=== PATIENT | male | born 1955 | race Caucasian/White ===

== ENCOUNTER 2025-02-14 09:06 | Emergency (ER) | payer MEDICARE, OTHER, SELFPAY ==
--- NOTE | ~2025-02-14 | XR_ITS ---
EXAMINATION: XR foot LT min 3V DATE: 02/14/2025 09:50 INDICATION: Pain and swelling at the left first metatarsal TECHNIQUE: Dorsoplantar, two oblique and lateral views of the left foot were obtained. COMPARISON: None. FINDINGS: No fracture. Widening of the fifth proximal interphalangeal joint with chronic osteotomies at the bas e of the middle phalanx and head of the proximal phalanx. Suggestion of prior arthroplasty and subseq uent fusion of the second proximal interphalangeal joint. There is additional widening of the second metatarsophalangeal joint with flattening of the head of the second metatarsal without underlying sub chondral sclerosis or lucency at likely sequela of chronic osteonecrosis (Freiberg's infraction). Ali gnment at each of these joints remains near-anatomic. Small Achilles and plantar calcaneal spurs with suture anchor at the region of the calcaneal insertion of the distal Achilles tendon. Mild polyartic ular osteoarthritis at multiple joints throughout the left foot including the first metatarsophalange al joint. No erosions to suggest inflammatory arthritis. Mild soft tissue swelling about the head of the first metatarsal. IMPRESSION: 1. Scattered degenerative and postoperative changes in the foot as detailed above. No acute osseous a bnormality. Reviewed, dictated and finalized at location A. IMPRESSION: 1. Scattered degenerative and postoperative changes in the foot as detailed abo ve. No acute osseous abnormality.
[2025-02-14 09:16] VITALS: BP 86/54; PULSE 92; RESP 20; TEMP 36.4; O2SAT 100
--- NOTE | 2025-02-14 09:24 | ED.LOWEXIN ---
HPI - Extremity Injury (Lower) General Chief Complaint: Extremity Injury, Lower Stated Complaint: Left Great Toe Pain/Injury Time Seen by Provider: 02/14/25 09:24 Source: patient Mode of arrival: ambulatory Limitations: no limitations History of Present Illness HPI Narrative: 69 yo M presents with c/o pain to L 1st MCP for 1 day. Fell yesterday and hit foot. Did not have any pain at that time. Now has swelling, tenderness, redness. CMS intact. No history of gout. All systems reviewed and negative except as noted above. Related Data Home Medications ?Medication ?Instructions ?Recorded ?Confirmed ?Last Taken ?Type Xarelto 02/14/25 Unknown History aspirin 02/14/25 Unknown History finasteride 02/14/25 Unknown History flomax 02/14/25 Unknown History lisinopril 02/14/25 Unknown History loratidin 02/14/25 Unknown History metoprolol succinate 02/14/25 Unknown History rosuvastatin 02/14/25 Unknown History spironolactone 02/14/25 Unknown History venlafexine 02/14/25 Unknown History Allergies Allergy/AdvReac Type Severity Reaction Status Date / Time No Known Allergies Allergy Verified 02/14/25 09:37 Review of Systems Review of Systems: CONSTITUTIONAL: Denies fever, chills, or sweats. EYES: Denies visual changes, redness, or discharge. ENT: Denies rhinorrhea, congestion, sore throat, or otalgia. CARDIOVASCULAR: Denies chest pain, palpitations, or edema. RESPIRATORY: Denies cough or dyspnea. GASTROINTESTINAL: Denies abdominal pain, nausea, vomiting, or diarrhea. GENITOURINARY: Denies dysuria or hematuria. SKIN: Denies rash or itching. MUSCULOSKELETAL: Denies back pain, joint pain, or myalgia. Reports pain to Left Foot. NEUROLOGIC: Denies headache, numbness, or weakness. PSYCHIATRIC: Denies anxiety or depression. All other systems reviewed are negative, except as documented in HPI. PMFSH Comments At time of signature, agree with nursing past medical, surgical, social and family history. There is no relevant family history pertinent to the presenting complaint. Exam Narrative: GENERAL: This is a well-nourished, well-developed patient, in no apparent distress. HEAD: normocephalic, atraumatic. EYES: PERRL. Sclera clear/white. Vision is grossly intact. EARS: External ears normal NOSE: External nose normal NECK: Neck supple, non-tender without lymphadenopathy, masses or thyromegaly. CARDIOVASCULAR: Regular rate and rhythm without murmurs, gallops, or rubs. RESPIRATORY: Clear to auscultation. Breath sounds equal bilaterally. No wheezes, rales, or rhonchi. SKIN: warm, Dry, intact with no suspicious lesions or rash, good texture and turgor. NEURO: awake, alert, and oriented to person, place and time. There were no obvious focal neurologic abnormalities. EXTREMITIES: No joint tenderness, effusion. Erythema to the medial aspect left 1st MCP with tenderness on palpation. Mild swelling noted. No deformity. Course Course Level of Care: Express Care Visit Vital Signs Vital signs: Vital Signs Temperature 36.4 C 02/14/25 09:16 Pulse Rate 92 02/14/25 09:16 Respiratory Rate 20 02/14/25 09:16 Blood Pressure 86/54 L 02/14/25 09:16 Pulse Oximetry 100 02/14/25 09:16 Oxygen Delivery Room Air 02/14/25 09:16 Temperature 36.4 C 02/14/25 09:16 Pulse Rate 92 02/14/25 09:16 Respiratory Rate 20 02/14/25 09:16 Blood Pressure 86/54 L 02/14/25 09:16 Pulse Oximetry 100 02/14/25 09:16 Oxygen Delivery Room Air 02/14/25 09:16 Reviewed MDM - Extremity Injury (Lower) MDM Narrative Medical decision making narrative: will treat erythema with cephelexin. concern for cellulitis due to recent injury. xray neg for fracture. no hx of gout but will give dose of colchicine as precaution. CMS intact. Discharge Plan Discharge Clinical Impression: Cellulitis of foot, left Patient Disposition: Home Condition: Stable Instructions: Antibiotic Form, Cellulitis (ED) Additional Instructions: your x-ray was negative for fracture. Take medications as prescribed. Take Tylenol every 6-8 hours as needed for pain. Elevate when at rest. Follow-up with your primary care physician if not improving. Patient Language: Bulgarian Prescriptions: New cephalexin 500 mg capsule 500 mg PO Q8H 7 Days Qty: 21 0RF colchicine 0.6 mg capsule 0.6 mg PO DIRECTED Qty: 3 0RF Rx Instructions: Take 2 tablets and then 1 hour later take 1 tablet. No Action Xarelto aspirin finasteride lisinopril loratidin metoprolol succinate venlafexine rosuvastatin spironolactone flomax Follow-up/Referrals: [facility] [Primary Care Provider] - Stand Alone Forms: Work/School Release IP Time of Disposition: 10:17
--- OUTSIDE RECORDS SUMMARY | 2025-02-14 09:29 | XMS_ITS | Clinical Summary ---
Author Organization [facility] Address [address] [place] [address] Phone Care Team Providers Care Whizzer Hand Name Role Phone Bayron Hurt MD Primary Care Provider [phone] Allergies Active Allergy Reactions Criticality Noted Date Comments Atorvastatin Calcium Unknown 01/06/2020 Tall Ragweed Other (see Comments) 11/19/2023 Sinus problems Medications aspirin EC 81 MG Tablet Delayed Response Take 81 mg by mouth daily. Active carvedilol (COREG) 6.25 MG Tablet Take 6.25 mg by mouth 2 times daily. Active Loratadine 10 MG Capsule Take 1 Cap by mouth daily. Active pantoprazole (PROTONIX) 40 MG Tablet Delayed Response Take 40 mg by mouth every morning. Active rivaroxaban (XARELTO) 20 MG Tablet Take 20 mg by mouth daily (with dinner). Take with food. Active spironolactone (ALDACTONE) 25 MG Tablet Take 25 mg by mouth every morning. Active rosuvastatin (CRESTOR) 40 MG Tablet Take 20 mg by mouth nightly. Active FLUTICASONE PROPIONATE, NASAL, NA 1 [place] by Nasal route daily. Active ipratropium (ATROVENT) 0.03 % Solution 2 Sprays by Nasal route every 12 hours. Active tamsulosin (FLOMAX) 0.4 MG Capsule Take 0.4 mg by mouth daily. Active amiodarone (CORDARONE) 200 MG Tablet Take 1 Tab by mouth daily. 30 Tab 1 01/08/2020 Active venlafaxine (EFFEXOR XR) 75 MG CAPSULE SR 24 HR Take 225 mg by mouth daily. Active lisinopril (PRINIVIL, ZESTRIL) 5 MG Tablet Take 2.5 mg by mouth daily. Active sotalol (BETAPACE) 240 MG Tablet Take 120 mg by mouth 2 times daily. Active fluconazole (DIFLUCAN) 200 MG Tablet Take 1 Tablet by mouth daily. 14 Tablet 06/22/2023 Active metoprolol Succinate (TOPROL-XL) 100 MG TABLET SR 24 HR Take 100 mg by mouth daily. Active Vitamin D3 (cholecalcifero l) 1000 UNIT Tablet Take 25 mcg by mouth daily. Active finasteride (PROSCAR) 5 MG Tablet Take 5 mg by mouth nightly. Active Empagliflozin (JARDIANCE) 10 MG Tablet Take 10 mg by mouth daily. Active oxyCODONE-aceta minophen (PERCOCET) 5-325 MG TabletIndicatio ns:Hammertoe of second toe of left foot Take 1 Tablet by mouth every 4 hours as needed for Moderate or more severe pain. 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 01/06/2020 Acute diastolic heart failure 01/06/2020 Chronic systolic heart failure 01/06/2020 Coronary artery disease involving saxman coronar y artery 01/06/2020 Hyperlipidemia 01/06/2020 Calcific Achilles tendinitis 11/15/2015 Elizabeth's deformity of left heel 11/15/2015 Family History Medical History Relation Name Comments Cancer Father Cancer Mother Congestive Heart Failure Mother Heart Disease Mother Relation Name Status Comments Father Mother Social History Tobacco Use Types Packs/Day Years Used Date Smoking Tobacco: Former Cigarettes 0.5 45 1 975 - 2019 Smokeless Tobacco: Never Tobacco Cessation:Counseling Given: Not Answered Alcohol Use Standard Drinks/Week Comments Yes 0 (1 standard drink = 0.6 oz pur e alcohol) rare Sex and Gender Information Value Date Recorded Sex Assigned at Not on file Legal Sex Male 11:21 PM CDT Gender Identity Not on file Sexual Orientation Straight 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 Filed Vital Signs Vital Sign Reading Time Taken Comments Blood Pressure 103/70 11/19/2023 11:05 AM CDT Pulse 70 11/19/2023 11:05 AM CDT Temperature 36 C (96.8 F) 11/19/2023 11:05 AM CDT Respiratory Rate 16 11/19/2023 11:0 5 AM CDT Oxygen Saturation 95% 11/19/2023 11: 05 AM CDT Inhaled Oxygen Concentration - - Weight 94.2 kg (207 lb 11.2 oz) 11/19/2023 6:34 AM CDT Height 180.3 cm (5' 11) 11/19/2023 6:34 AM CDT Body Mass Index 28.97 11/19/2023 6:34 AM CDT Plan of Treatment Health Maintenance Due Date Last Done Comments Hepatitis C Virus (HCV) Screening 1954 Cologuard 1999 Colonoscopy 1999 Colorectal Cancer Screening 1999 Immunochemical Fecal Occult Blood 1999 Hepatitis B Immunization (3 of 3 - 19+ 3-dose series) 02/23/2004 12/29/2003, 06/06/2003 Zoster Immunization (1 of 2) 2004 Respiratory Syncytial Virus (RSV) Immunization (Adult) (1 - Risk 60-74 years 1-dose series) 2014 SARS-COV-2 Immunization (3 - season) 2024 12/02/2020, 11/05/2020 Influenza Immunization (Season Ended) 2025 08/01/2023, 07/31/2023, 06/01/2023, Additional history exists TdaP Immunization Completed 04/18/2010 DTaP/Tdap/Td Immunization Discontinued 05/27/2011, Lung Cancer Screening Discontinued 10/19/2019 Pneumococcal Immunization (50+ years) Completed 09/24/2023, 10/10/2020, 07/06/2014, Additional history exists Pneumococcal Immunization Combined Discontinued 09/24/2023, 10/10/2020, 07/06/2014, Additional history exists Human Papillomavirus (HPV) Immunization Aged Out No longer eligible based on patient's age to complete this topic Meningococcal Immunization (ACWY) Aged Out No longer eligible based on patient's age to complete this topic Rotavirus Immunization Aged Out No lo nger eligible based on patient's age to complete this topic Medical Devices Implanted Type Area Moving Consultant Device Identifier Shelf Expiration Date Model / Serial / Lot Implant Watkins 4.5mm - [id number] Implanted:Qty : 1 on 11/15/2015 by Filiberto Maurer DPM at [facility] IMPLANT Left: Achilles Tendon [employer] [id number] / / [id number] Tenfuse Pip Allograft Non-Acid Washed 2.7mm X 18mm Straight Implanted:Qty : 1 on 11/19/2023 by Hunter Maurer DPM at [facility] 06/06/2026 [id number]-[id number] 18 / [id number] / [id number] Insurance MEDICARE [facility] Advance Directives * Full Code (Latest Code Status on File) Date Activated Date Inactivated Comments 02/12/2022 4:59 PM 02/12/2022 7:32 PM CPR-Full Kermit atment: FULL ARREST: Attempt Resuscitation/CPR wit intubation and mechanical ventilation. PRE-ARREST: Use entire range of life support measures to stabilize the patient. * Full Code Date Activated Date Inactivated Comments 01/06/2020 5:22 PM 01/07/2020 7:24 PM CPR-Full Treat ment: FULL ARREST: Attempt Resuscitation/CPR wit intubation and mechanical ventilation. PRE-ARREST: Use entire range of life support measures to stabilize the patient. Care Teams Whizzer Hand Relationship Specialty Start Date End Date Bayron Hurt MD [facility] [place] [address] PCP - General Internal Medicine 08/06/16
--- OUTSIDE RECORDS SUMMARY | 2025-02-14 09:30 | XMS_ITS | Encounter Summary ---
Author Organization [facility] Address [address] [place] [address] Phone Care Team Providers Care Disability Insurance Hearing Officer Name Role Phone Bayron Hurt MD Primary Care Provider [phone] [facility], [facility] Sweet Unavailable Monserrat Kelley MD Unavailable [phone] Miscellaneous, Not In File Unavailable Unava ilable Imani Del Rio RN Unavailable [phone] [facility] Sweet Primary Care Pro vider Katia Rodriguez NP Primary Care Provider [phone] Junior Zaldivar PT Unavailable Unavailab Mary Lou Lopez OT Unavailable Unavailable Leo Cheema MD Unavailable [phone] Bayron Hurt MD Primary Care Provider [phone] Encounter Details Date Type Department Care Team (Latest Contact Info) Description 08/23/2019 Orders Only [facility] Scanning, Provider Social History Tobacco Use Types Packs/Day Years Used Date Smoking Tobacco: Every Day Smokeless Tobacco: Never Alcohol Use Standard Drinks/Week Comments Yes 0 (1 standard drink = 0.6 oz pur e alcohol) PHQ-2 Answer Date Recorded PHQ-2 Score 0 04/23/2019 Sex and Gender Information Value Date Recorded Sex Assigned at Not on file Legal Sex Male 5:28 PM 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 Gender Identity Male 04/21/2021 4:28 PM CDT Sexual Orientation Straight 09/21/2019 5: 39 PM 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 documented as of this encounter Plan of Treatment Not on file documented as of this encounter Procedures Procedure Name Priority Date/Time Associated Diagnosis Comments CARDIOLOGY DOCUMENT SCAN 08/23/2019 documented in this encounter Results * SCAN - CARDIOLOGY (08/23/2019) Anatomical Region Laterality Modality Other us Provider Scanning CV CARDIAC SERVICES PROCEDURES Final Result documented in this encounter Visit Diagnoses Not on filedocumented in this encounter Additional Health Concerns Infection Onset Date Last Indicated Resolved Time MDR gram neg/ESBL 11/21/2019 11/21/2019 Exposure, COVID-19 Comment:11/26/2019 Pt was exposed by 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 Will need to be isolated for 14 days with contact, droplet, and eye protection. Assess for signs and symptoms for COVID testing. If remains asymptomatic can remove isolation precautions on 12/04/2019. Octavia Walker, [place] 11/26/2019 11/26/2019 12/11/2019 3:05 AM CDT COVID: Suspected 02/12/2022 02/12/2022 02/12/2022 2:02 PM CDT documented as of this encounter Care Teams Disability Insurance Hearing Officer Relationship Specialty Start Date End Date Bayron Hurt MD [address] [place] [address] PCP - General 01/07/17 04[facility]24[facility]21 [facility] [address] [place] [address] PCP - General Genetics 04/25/21 01/28/23 Katia Rodriguez NP [address] [place] [address] [place] [address] PCP - General Family Medicine 01/29/23 04/19/24 Bayron Hurt MD [address] [place] [address] PCP - General Family Medicine 04/20/24 [facility] Sweet [address] [place] [address] Referring Physician Cardiology 09/10/19 Monserrat Kelley MD [address] [place] [address] Surgeon Cardiothoracic Surgery 11/29/19 Miscellaneous, Not In File 11/29/19 Imani Del Rio, RN [address] [place] [address] [place] [address] Safety Administrator 11/30/19 12/01/19 Junior Zaldivar, PT Physical Therapist Physical Therapy 04/10/23 Mary Lou Carrasco, OT Occupational Therapist Occupational Therapy 09/08/23 Leo Cheema MD [address] [place] [address] Consulting Physician Family Medicine 03/17/24 documented as of this encounter
--- OUTSIDE RECORDS SUMMARY | 2025-02-14 09:30 | XMS_ITS | Clinical Summary ---
Author Organization [facility] Address [address] [place] [address] Care Team Providers Care Ground Wood Supervisor Name Role Phone Unavailable Primary Care Provider Unavailabl e Source Comments [facility],non-owned Affiliates and Associated Physician Practices is amultiple site organization consisting of ambulatory clinics and hospital sitesin [place], [place], [place] and [place]. This disclosure is being madepursuant to the Care Everywhere program and may not contain all information available regarding this patient. 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 06/15/2015 Sleep apnea 03/19/2013 Atrial fibrillation 03/19/2013 Atherosclerotic heart diseas e of [place] coronary artery without angina pectoris 02/22/2013 Tobacco use 02/22/2013 Ischemic cardiomyopathy 02/19/2013 Other specified postprocedural states 02/19/2013 Personal history of other di seases of the circulatory system 02/19/2013 Supraventricular tachycardia 12/09/2012 Heart failure 12/09/2012 Ventricular tachycardia 12/09/2012 Hyperlipidemia 12/09/2012 Presence of aortocoronary bypass graft 3 Family History Medical History Relation Name Comments Asthma Brother Status: Alive Heart Disease Brother Status: Alive Cancer Father Status: d CAD (Coronary Artery Disease) Mother Status: CVA Mother Diabetes Mother Cancer Sister Status: Alive Relation Name Status Comments Brother Father Mother Sister Social History Tobacco Use Types Packs/Day Years Used Date Smoking Tobacco: Every Day Smokeless Tobacco: Never Alcohol Use Standard Drinks/Week Comments Yes 0 (1 standard drink = 0.6 oz pur e alcohol) Sex and Gender Information Value Date Recorded Sex Assigned at Male 07/16/2021 2:04 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 Legal Sex Male 6:40 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 Gender Identity Male 07/16/2021 2:04 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 Sexual Orientation Straight 07/16/2021 2: 04 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 Last Filed Vital Signs Vital Sign Reading Time Taken Comments Blood Pressure 102/72 04/20/2013 8:28 AM CDT Pulse 68 04/20/2013 8:28 AM CDT Temperature 36.7 C (98.1 F) 03/19/2013 10:15 AM CDT Respiratory Rate 16 02/09/2013 8:21 AM CDT Oxygen Saturation 94% 04/20/2013 8:28 AM CDT Inhaled Oxygen Concentration - - Weight 111.1 kg (245 lb) 04/20/2013 8:28 AM CDT Height 180.3 cm (5' 11) 04/20/2013 8:28 AM CDT Body Mass Index 34.17 04/20/2013 8:28 AM CDT Plan of Treatment Health Maintenance Due Date Last Done Comments COLOGUARD (AGES 45-75) - COL ON CA SCREENING 1954 COLON MONITORING 1954 COLONOSCOPY - COLON CA SCREENING 1954 CT COLONOGRAPHY - COLON CA SCREENING 1954 Colorectal Cancer Screening 1954 FIT - COLON CA SCREENING 1954 FLEX SIG - COLON CA SCREENING 1954 MEDICARE AWV 12 MONTHS 1954 HEPATITIS C SCREENING 08/06/1972 DTAP/TDAP/TD VACCINES (1 - Tdap) 1973 PNEUMOCOCCAL VACCINE 50+ (1 of 2 - PCV) 1973 ZOSTER VACCINE (1 of 2) 2004 AAA SCREENING 2019 COVID-19 VACCINE (1 - 2023-2 5 season) 2024 DEPRESSION SCREENING 09/01/2024 INFLUENZA VACCINE (Season Ended) 2025 07/16/20 21 Respiratory Syncytial Virus (RSV) Vaccine Pt: or over 60 yrs (1 - 1-dose 75+ series) 2029 HEPATITIS B VACCINE Aged Out No longe r eligible based on patient's age to complete this topic HIB VACCINE Aged Out No longer eligi ble based on patient's age to complete this topic HPV VACCINE Aged Out No longer eligi ble based on patient's age to complete this topic MENINGOCOCCAL (Group B) VACC INE SHARED DECISION-MAKING Aged Out No longer eligibl e based on patient's age to complete this topic MENINGOCOCCAL GROUPS A/C/Y/W VACCINE Aged Out No longer eligible b ased on patient's age to complete this topic Insurance MEDICARE [facility] MEDICARE [facility]
--- OUTSIDE RECORDS SUMMARY | 2025-02-14 09:30 | XMS_ITS ---
Author Organization [facility] Address [address] [place] [id number] Care Team Providers Care Yarn Rewinder Name Role Phone [facility] Unavailable Monserrat Kelley MD Unavailable [phone] Miscellaneous, Not In File Unavailable Unava ilable Junior Zaldivar PT Unavailable Unavailab Mary Lou Lopez OT Unavailable Unavailable Leo Cheema MD Unavailable [phone] Bayron Hurt MD Primary Care Provider [phone] Active Problems Problem Noted Date Diagnosed Date Flu vaccine need 07/16/2024 Assessment & Plan (07/16/2024 9:43 AM FACILITIES PLANT ENGINEER): update Benign prostatic hyperplasia 07/16/2024 Assessment & Plan (07/16/2024 9:43 AM FACILITIES PLANT ENGINEER): Continues on dual therapy and continues on tamsulosin and finasteride. DDD (degenerative disc disease), cervical 2023 Assessment & Plan (07/16/2024 9:43 AM FACILITIES PLANT ENGINEER): Continue f/uw with spine and pain management and will follow response. Coronary artery disease of n ative heart with stable angina pectoris 07/16/2024 Assessment & Plan (07/16/2024 9:43 AM FACILITIES PLANT ENGINEER): Secondary prevention for CAD and will montmonse horner. Acute kidney injury 03/16/2024 Assessment & Plan (04/09/2024 3:30 PM CDT): Stable, well controlled, EGFR continue to improve on discharge, returned to baseline; will continue to monitor kidney function Assessment & Plan (03/17/2024 9:40 AM CDT): 03/14 Cr loren to >2.0 from previous baseline of ~1.1-1.3. He has had numerous insults related to this including toradol, hypotension, and takes lisinopril/aldacone. Possible contribution of retention although seems mild so far - nephrotoxic agents held appropriately by primary team, s/p IVF Cr peaked at 2.5 03/14, now down to 2.3 today, so likely is already recovering. Now improved to 1.4 Recommendations Cont to hold NSAIDS, aldactone, spironolactone and on discharge, should follow up with PCP in 1-2 for recovery - pt to straight cath at home Urinary retention 03/16/2024 Assessment & Plan (03/17/2024 9:42 AM CDT): Had a high bladder scan today with some subjective retention, he has had issues in the past and had knox for 3 months he reports - required straight caht last night, still has not urinated on his own. On flomax/finasteride - he does not want knxo, he reports he will do straight cath at home (he has supplies and has done before), recommended to resume that at this time and follow up with urology as outpatient Degenerative lumbar spinal stenosis 03/12/2024 Sensorineural hearing loss, bilateral 02/23/2024 Presence of cardiac pacemaker 02/23/2024 Benign prostatic hyperplasia with lower urinary tract symptoms 02/16/2024 Assessment & Plan (04/09/2024 3:31 PM CDT): Currently having urinary retention; straight cath every 6 hours May be secondary to anesthesia as patient had similar symptoms before prior surgeries; will continue to monitor, expectation to retain on Bladder-neck obstruction 02/16/2024 Dental caries on smooth surface penetrating into dentin 02/16/2024 Gross hematuria 02/16/2024 Hematuria, unspecified 02/16/2024 Neuromuscular dysfunction of bladder, unspecifie d 02/16/2024 Other intervertebral disc degeneration, lumbar r egion 02/16/2024 Presence of left artificial hip joint 02/16/2024 Lumbar stenosis with neurogenic claudication Assessment & Plan (04/09/2024 3:29 PM CDT): Patient is status post lumbar fusion and decompression Patient discharged home after refusing subacute rehab Will order for home health for physical therapy and occupational therapy Using walker for ambulation; otherwise unable to tolerate most activities Continue Tylenol for pain management; oxycodone 5 mg Surgery Assessment & Plan (03/16/2024 3:25 PM CDT): 03/12 OR for L5-S1 L MIS TLIF, L3-L4 decompression, management as per spine primary team - is improving and pain controlled Lumbar radiculopathy 12/12/2023 Hammertoe of second toe of left foot 11/19/2023 Age-related nuclear cataract, bilateral 08/26/20 Allergic rhinitis 08/26/2023 Chronic fatigue syndrome 08/26/2023 Chronic periodontitis, localized, moderate 08/26 Cough 08/26/2023 Cramp and spasm 08/26/2023 Dental root caries 08/26/2023 Deposits (accretions) on teeth 08/26/2023 Displaced fracture of fifth metatarsal bone, unspecified foot, sequela 08/26/2023 Dry eye syndrome of bilateral lacrimal glands Fracture of lateral malleolus 08/26/2023 Gastrointestinal stromal tumor of stomach 2022 Assessment & Plan (07/16/2024 9:42 AM FACILITIES PLANT ENGINEER): COntinue f/u. Assessment & Plan (08/27/2023 9:15 AM FACILITIES PLANT ENGINEER): [facility]; found on endoscopy 6 months ago Follow up endoscopy in October to determine if change in size and plan Groin pain 08/26/2023 Impotence of organic origin 08/26/2023 Nondisplaced fracture of fif th metatarsal bone, right foot, initial encounter for closed fracture 08/26/2023 Assessment & Plan (08/27/2023 9:17 AM FACILITIES PLANT ENGINEER): [facility]; in orthopedic shoe Nontraumatic rupture of tendons of biceps (long head) 08/26/2023 Osteoarthritis 08/26/2023 Other retention of urine 08/26/2023 Pain in left foot 08/26/2023 Paresthesia of skin 08/26/2023 Peripheral vascular disease, unspecified 023 Assessment & Plan (07/16/2024 9:42 AM FACILITIES PLANT ENGINEER): Reivewed claudicatory sypmtoms and secondary prevnetion for antiplatelet and statin therapy. 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 Collection kit sent home with patient His will return to clinic Cervical myelopathy 05/23/2023 Cervical disc disorder with myelopathy of mid-cervical region 05/14/2023 VT (ventricular tachycardia) 07/05/2021 Assessment & Plan (09/07/2021 6:29 PM FACILITIES PLANT ENGINEER): significant burden on device interrogation with symptoms despite amio and metop. -s/p successful VT ablation 09/07 with EP -Per procedure note pending on how patient does overnight may be able to d/c w/o amio vs possible d/c in f/u apt in 4-6 weeks. -continue metop Fitting and adjustment of au tomatic implantable cardioverter-defibrillator 07/05/2021 Acute diastolic heart failure 01/06/2020 Chronic systolic heart failure 01/06/2020 Assessment & Plan (07/16/2024 9:41 AM FACILITIES PLANT ENGINEER): Continues on sprionolactone, metoprolol XL 50mg, lisionpril and jardiance 10mg Assessment & Plan (04/09/2024 3:30 PM CDT): LVEF 25%; no peripheral edema, no dyspnea Continue spironolactone 25 mg daily, metoprolol 100 mg nightly, lisinopril 2.5 mg nightly, Jardiance 10 mg daily Assessment & Plan (03/16/2024 3:21 PM CDT): Last known echo from 2019 with mod MR and 25% EF, he is otherwise currently compensated and doesn't take a home diuretic - cont to hold home lisinopril, aldactone given abida and recent hypotension - has tolerated metoprolol currently but if SBP <90 would hold Paroxysmal atrial fibrillation with RVR 01/06/20 20 Assessment & Plan (07/16/2024 9:41 AM FACILITIES PLANT ENGINEER): COntinues on metoprolol XL and DOAC - xarelto 20mg daily. Status post mitral valve rep lacement with bioprosthetic valve 01/06/2020 UTI (urinary tract infection) 11/22/2019 Assessment & Plan (11/29/2019 9:16 AM CDT): E.coli UTI Continue meropenum started on 11/23/2019 will plan to switch to po doxycycline on discharge for total of 2 weeks antibiotic Afebrile with WBC trending down Assessment & Plan (11/28/2019 1:09 PM CDT): E.coli UTI Continue meropenum started on 11/23/2019 will plan to switch to po doxycycline on discharge for total of 2 weeks antibiotic Afebrile with WBC trending down Assessment & Plan (11/27/2019 1:12 PM CDT): E.coli UTI Continue meropenum started on 11/23/2019 will plan to switch to po doxycycline on discharge for total of 2 weeks antibiotic Afebrile with WBC trending down Assessment & Plan (11/23/2019 2:14 AM CDT): WBC to 19.3, afebrile UA showing 3+ Leuk esterase and 2+ bacteria Cultures: gram negative bacilli Patient denies any symptoms, afebrile, hemodynamically stable, knox out Started on vancomycin and cefepime -narrow abx as appropriate Leukocytosis 11/16/2019 Assessment & Plan (11/29/2019 9:16 AM CDT): Wbc elevated but down overall. Continue meropenum for urosepsis now day #7 - at time of discharge will switch over to doxycycline for total of 2 weeks antibiotic coverae Central line removed due to gram negative bacilli in blood culture, probably contaminate with repeat blood cultures on 11/22 still ngtd x 2 and ngtd x 1 on 11/23 Given one dose of gentamycin 11/21 Assessment & Plan (11/28/2019 12:56 PM CDT): Wbc down to 12.8 from 15.3 from 17. Most likely due to IV infiltration of dobutamine on 11/24 which has resolved. Continue meropenum for urosepsis now day #6 - at time of discharge will switch over to doxycycline for total of 2 weeks antibiotic coverae Central line removed due to gram negative bacilli in blood culture, probably contaminate with repeat blood cultures on 11/22 still ngtd x 2 and ngtd x 1 on 11/23 Given one dose of gentamycin 11/21 Assessment & Plan (11/27/2019 1:10 PM CDT): Wbc down to 15.3 from 17. Most likely due to IV infiltration of dobutamine on 11/24. Continue meropenum for urosepsis now day #5 No need to broaden abx at this time per Dr. Kelley Central line removed due to gram negative bacilli in blood culture, probably contaminate with repeat blood cultures on 11/22 ngtd x 2 Given one dose of gentamycin 11/21 Assessment & Plan (11/22/2019 8:31 PM CDT): Downtrending WBC to 19.3, afebrile UA showing e/o UTI as above No e/o new PNA (CXR stable) or other infectious source Vanc/cefe as above Assessment & Plan (11/19/2019 5:18 AM CDT): Postop WBC 18.8. Likely inflammatory following procedure. - Downtrending WBC - No indication for cultures - Periop Vanc and Ancef Assessment & Plan (11/16/2019 4:55 PM CDT): Postop WBC 18.8. Likely inflammatory following procedure. - No indication for cultures - Periop Vanc and Ancef TUCKER (obstructive sleep apnea) 11/14/2019 Assessment & Plan (11/29/2019 9:15 AM CDT): Recent diagnosed with TCUKER Has not started CPAP therapy Assessment & Plan (11/28/2019 1:09 PM CDT): Recent diagnosed with TUCKER Has not started CPAP therapy Assessment & Plan (11/21/2019 2:30 AM CDT): - continue CPAP QHS Assessment & Plan (11/17/2019 10:53 PM CDT): - continue CPAP QHS Assessment & Plan (11/16/2019 11:36 PM CDT): - continue CPAP QHS Assessment & Plan (11/14/2019 2:41 PM CDT): Recent diagnosed with TUCKER Has not started CPAP therapy Mitral valve insufficiency 11/10/2019 Overview (11/10/2019): Added automatically from request for surgery [id number] Assessment & Plan (11/29/2019 9:15 AM CDT): S/p MVR (bio) on 11/16/2019 COMPONENTS ENGINEER off 11/27 Unable to start beta sandy as BP soft and down to the mid 80s this morning with return to > 100 without intervention CXR TTE in the morning Creatinine now at baseline - continue to hold lasix. Discharge planning - home when able Assessment & Plan (11/28/2019 1:09 PM CDT): S/p MVR (bio) on 11/16/2019 COMPONENTS ENGINEER off 11/27 Unable to start beta sandy as BP soft and down to the mid 80s this morning with return to > 100 without intervention CXR TTE in the morning Creatinine now at baseline - continue to hold lasix. Discharge planning - home when able Assessment & Plan (11/22/2019 8:29 PM CDT): S/p MVR. ICU Standards of Care: - completed rebecca-op Cefazolin and Vancomycin x 24 hrs for surgical site infection ppx - ASA for anticoagulation POD 1 - Statin daily for HLD - Eventual B-sandy for S/P CABG - Colace, Senna, and Miralax for bowel regimen - Insulin gtts for glycemic control Q4 hrs - Home PPI - SCDs and SQH for DVT ppx - PT for decreased mobility post surgery Assessment & Plan (11/17/2019 10:55 PM CDT): S/p MVR. ICU Standards of Care: - completed rebecca-op Cefazolin and Vancomycin x 24 hrs for surgical site infection ppx - ASA for anticoagulation POD 1 - Statin daily for HLD - Eventual B-sandy for S/P CABG - Colace, Senna, and Miralax for bowel regimen - Insulin gtts for glycemic control Q4 hrs - Home PPI - SCDs for DVT ppx - SQH started on POD 1 - PT for decreased mobility post surgery Assessment & Plan (11/16/2019 4:53 PM CDT): S/p MVR. ICU Standards of Care: - ASA for anticoagulation POD 1 - Statin daily for HLD - Eventual B-sandy for S/P CABG - Colace, Senna, and Miralax for bowel regimen - Insulin gtts for glycemic control Q4 hrs - NPO - Home PPI - SCDs for DVT ppx - Plan to start SQH POD 1 if PLT > 100 and no active bleeding - PT for decreased mobility post surgery - Continue rebecca-op Cefazolin and Vancomycin x 24 hrs for surgical site infection ppx Assessment & Plan (11/27/2019 1:11 PM CDT): S/p MVR (bio) on 11/16/2019 COMPONENTS ENGINEER off today EPW out this morning Unable to start beta sandy as BP soft No need for TTE per Dr. Kelley Creatinine now at baseline - still holding lasix. Not on home diuretic and no signs of edema. Cardiomyopathy, ischemic 09/21/2019 Assessment & Plan (07/16/2024 9:42 AM FACILITIES PLANT ENGINEER): No s/s fo fluid overload. Assessment & Plan (09/07/2021 6:30 PM FACILITIES PLANT ENGINEER): Appear compensated. 10/2019 TTE EF 45% Continue patient home HF meds Assessment & Plan (11/21/2019 2:35 AM CDT): CAD s/p CABG x4 ~30 years ago, ischemic cardiomyopathy EF 30-40% - s/p BioMVR as above - post-procedure RUBI - preserved RV fxn, reduced LV fxn with EF 30% on 0.1 mcg/kg/min epi Essential hypertension 09/21/2019 Assessment & Plan (02/23/2024 9:36 AM CDT): Chronic, stable, well controlled BP at visit; 96/62 Continue Lisinopril 5 mg daily, Metoprolol 200 mg nightly, Spironolactone 25 mg nightly Assessment & Plan (09/07/2021 6:29 PM FACILITIES PLANT ENGINEER): Continue home meds Atrial fibrillation 09/21/2019 Assessment & Plan (04/09/2024 3:30 PM CDT): Rate controlled with regular rhythm today; continue ASA 81 mg daily, metoprolol 100 mg daily, rivaroxaban 20 mg daily Assessment & Plan (03/16/2024 3:24 PM CDT): Hx of paroxysmal afib also has pacemaker in place - takes xarelto which has been held with procedure, recommend to resume when ok per surgical team - cont metoprolol as ordered unless becomes hypotensive Assessment & Plan (02/25/2024 1:11 PM CDT): Chronic, stable Continue Xarelto 20 mg daily and ASA 81 mg daily Assessment & Plan (09/07/2021 6:29 PM FACILITIES PLANT ENGINEER): Continue metop and xarelto Assessment & Plan (11/29/2019 9:14 AM CDT): Currently 100% v-paced EPW wires out 11/26 Continue Xarelto At home was on sotalol but do to hypotensive effects will continue amiodarone BP soft - unable to start beta sandy Assessment & Plan (11/28/2019 12:54 PM CDT): Currently 100% v-paced EPW wires out 11/26 Continue Xarelto At home was on sotalol but do to hypotensive effects will continue amiodarone BP soft - unable to start beta sandy Assessment & Plan (11/23/2019 2:10 AM CDT): Managed on sotalol and xarelto outpatient. Pt currently DDD @ 80 via epicardial wires. - Underlying PPM DDD @ 80 - atrial fibrillation 10/24 AM, s/p amiodarone bolus - added daily amiodarone 400 mg - ASA & SQH Assessment & Plan (11/20/2019 2:53 AM CDT): Managed on sotalol and xarelto outpatient. Pt currently A paced @ 96 via epicardial wires. - Underlying PPM DDD @ 80, pull epicardial wires - hold anticoagulation in immediate post-op period Assessment & Plan (11/19/2019 5:13 AM CDT): Managed on sotalol and xarelto outpatient. Pt currently A paced @ 96 via epicardial wires. - Underlying PPM DDD @ 80. - hold anticoagulation in immediate post-op period Assessment & Plan (11/17/2019 10:55 PM CDT): Managed on sotalol and xarelto outpatient. Pt currently A paced @ 96 via epicardial wires. Underlying PPM DDD @ 80. - AAI pace @ 96 - Called [employer] to reactivate ICD - Hold anticoagulation in immediate postop period Assessment & Plan (11/16/2019 4:55 PM CDT): Managed on sotalol and xarelto outpatient. Pt currently A paced @ 96 via epicardial wires. Underlying PPM DDD @ 80. - AAI pace @ 96 - Called [employer] to reactivate ICD - Hold anticoagulation in immediate postop period Assessment & Plan (11/27/2019 1:07 PM CDT): Currently 100% v-paced EPW wires out this morning Restart Xarelto tomorrow On coreg and sotalol at home BP soft - unable to start beta sandy Acute left-sided low back pain with left-sided s ciatica 08/12/2018 Assessment & Plan (08/12/2018 1:00 PM FACILITIES PLANT ENGINEER): Acute on Chronic back pain Pt. With hx of back pain. Had Surgery on back about a year ago at [facility]. Was doing fine until about 3 months ago when pain started to come back and it has progressively gotten worse. He went to [facility] and now has a cane and back brace to use. He is planning on starting PT at the [facility] in September Will try Medrol dose pack Pt. Would like pain medications refilled-Hydrocodone Recommend ice and heat as tolerated. Will get Lumbar X-ray. RTC in 2 months after start of PT Acute back pain-Most patients who present with back pain will have nonspecific back pain. You will typically improve over a few to several weeks with conservative or self-care. Usually, Imaging is not needed unless you have specific signs and symptoms like history of recent trauma, fever, recent infection, dialysis, hx of cancer, old age, osteoporosis,frequent steroid use or any red flags.. If your back pain does not improve in 4-6 weeks, we can get an x-ray. If your back pain does not improve in 4-6 weeks, we can get physical therapy. Most acute back pain gets better by 4-6 weeks. Most patients with acute low back pain do not require any laboratory testing. In some patients with suspected infection or malignancy, we use the erythrocyte sedimentation rate (ESR) and/or C-reactive protein (CRP) and a CBC. Red flags include: new urinary retention, urinary incontinence from bladder overflow, new fecal incontinence, saddle anesthesia (loss of sensation in buttock, perineum and inner surfaces of the thighs), progressive motor weakness, fever, -go to the ER Activity modification should generally be minimal, return to activities of daily living and work as soon as possible. If activity is painful or increases pain, do as much as you can and gradually increase activity as tolerated. Nonsteroidal antiinflammatory drugs -- We start with NSAID therapy in patients with acute low back pain without contraindications to this therapy. Meds like Ibuprofen, Motrin, Aleve, Naprosyn. NSAIDs may have significant renal, gastrointestinal, and cardiovascular adverse effects and may be contraindicated in some patients. Acetaminophen is an option for therapy for low back pain. Combination with muscle relaxants -- Muscle relaxants are a group of drugs with similar physiologic effects including analgesia and a degree of skeletal muscle relaxation or relief of muscle spasm. These can be combined with NSAIDs or Tylenol (Acetaminophen). These medications include: cyclobenzaprine, methocarbamol, baclofen, and tizanidine. Heat -- Heat is often applied with the rationale that it may reduce muscle spasm Massage Cold - Application of cold is often recommended for patients with acute back pain, with the rationale that it may help reduce edema Acupuncture may be a reasonable option for interested patients with access to an postdoctoral research associate. Spine Inspection-nomal Spine palpation-normal Reflexes-Patellar- Decreased on left side Strength/weakness- Hip- Left yes Knee- left yes Foot-left yes weakness Sensory loss/numness- Thigh- yes left side Gait- Heel walk- Unable to perform Toe walk-decreased strenght Straight leg raise-left leg weakness and pain Right leg straight leg raise normal Staph skin infection 08/12/2018 Calcific Achilles tendinitis 11/15/2015 Elizabeth's deformity of left heel 11/15/2015 Presence of automatic implan table cardioverter-defibrillator 06/15/2015 Anxiety disorder 01/15/2014 Assessment & Plan (07/16/2024 9:42 AM FACILITIES PLANT ENGINEER): Reivewed use of venlafaxinea nd will monitor response. Assessment & Plan (02/23/2024 9:37 AM CDT): Chronic, stable Continue Venlafaxine 225 mg daily Assessment & Plan (11/21/2019 2:37 AM CDT): -venlefaxine -ramelteon prn [facility] Atherosclerotic heart diseas e of [place] coronary artery without angina pectoris 02/22/2013 Tobacco use 02/22/2013 Other specified postprocedural states 02/19/2013 Personal history of other di seases of the circulatory system 02/19/2013 Hypertensive heart disease with heart failure Hyperlipidemia 12/09/2012 Assessment & Plan (02/23/2024 9:35 AM CDT): Chronic, stable Continue 20 mg nightly [facility] Presence of aortocoronary bypass graft 3 Current Treatment and Therapy Plans No current plan information found. Past Treatment and Therapy Plans No past plan information found. Lifetime Dose Tracking * Chemical Lifetime Dose Automatic Entry Manual Entr y Fluoro Time 4.322 minutes 4.322 minutes 0 minutes Air kerma at the reference point (Ka,r) 373.79 mGy 2 52.79 mGy 121 mGy DLP 8,652 mGycm 8,652 mGycm 0 mGycm Resolved Problems Problem Noted Date Diagnosed Date Resolved Date Affective psychosis 08/26/2023 07/16/20 24 Other constipation 11/20/2019 0 Assessment & Plan (11/21/2019 2:39 AM CDT): Post-op constipation worsened with opioid use. Large gastric bubble on CXR, did not pass gas/no bowel movement. Initially doubled senna/docusate without relief, added on enema, and lactulose - 4 bowel movements overnight on lactulose Plan: - hold lactulose in the setting of successful bowel clean out - can resume bowel regimen once bowel movements stop Assessment & Plan (11/20/2019 2:58 AM CDT): Post-op constipation worsened with opioid use. Large gastric bubble on CXR, did not pass gas/no bowel movement. Initially doubled senna/docusate without relief, added on enema, and lactulose - 4 bowel movements overnight on lactulose Plan: - hold lactulose in the setting of successful bowel clean out - can resume bowel regimen once bowel movements stop Acute postoperative pain 11/16/2019 Assessment & Plan (11/24/2019 1:06 PM CDT): Continue oxycodone Assessment & Plan (11/22/2019 8:29 PM CDT): Expected following sternotomy - scheduled tylenol, PRN oxycodone - now pain improving Assessment & Plan (11/17/2019 10:53 PM CDT): Expected following sternotomy - d/c'd fentanyl cadd @ 50mcg/hr with prn 25mg bolus s/p extubatoin - scheduled tylenol, PRN oxycodone and dilaudid for pain control Assessment & Plan (11/16/2019 11:45 PM CDT): Expected following sternotomy - d/c'd fentanyl cadd @ 50mcg/hr with prn 25mg bolus s/p extubatoin - PRN oxycodone and dilaudid for pain control Assessment & Plan (11/16/2019 3:27 PM CDT): Expected following sternotomy. Currently sedated on Precedex. - Start fentanyl cadd @ 50mcg/hr with prn 25mg bolus - Precedex for RASS -2 - Keep intubated until hemodynamics improve Cardiogenic shock 11/16/2019 11/26/2019 Assessment & Plan (11/25/2019 10:16 AM CDT): Slow inotrope wean at this point, was on epi initially but central line had to be removed due to concern of bacteremia. Central line removed and stated on dobutamine which can go through a peripheral IV Cr now at 1.43 -holding dobutamine wean today -no lasix today Assessment & Plan (11/22/2019 8:30 PM CDT): Preop EF 30-40%. History of ICM s/p [employer] ICD. Post CPB RUBI with preserved RV function, EF 30-40% on Epi 0.1 and milrinone 0.25. Intraop pt had low cardiac index of 1.4 at the beginning of the procedure, Epi at 0.1mcg/kg/min was initiated with improvement to 1.7. After chest closure it dropped to 1.1 and milrinone at 0.25mcg/kg/min was added. Last cardiac index prior to arrive to ICU was 1.3. On arrival to ICU cardiac index was 1.1 with CVP 3-4, SVO2 50%. Attempted bedside TTE but unable to get windows. Lactate 2.8. 500ml albumin x1 -> cardiac index improved to 1.64. Was able to wean off of NE and attempted to wean Epi for CI > 2.2. Was able to wean off milrinone on 11/18 - ICD in place and reactivated post op - Epi now at 0.05, wean Q12hr for ScvO2>60 - vasopressin for MAP > 65 Assessment & Plan (11/20/2019 2:54 AM CDT): Preop EF 30-40%. History of ICM s/p [employer] ICD. Post CPB RUBI with preserved RV function, EF 30-40% on Epi 0.1 and milrinone 0.25. Intraop pt had low cardiac index of 1.4 at the beginning of the procedure, Epi at 0.1mcg/kg/min was initiated with improvement to 1.7. After chest closure it dropped to 1.1 and milrinone at 0.25mcg/kg/min was added. Last cardiac index prior to arrive to ICU was 1.3. On arrival to ICU cardiac index was 1.1 with CVP 3-4, SVO2 50%. Attempted bedside TTE but unable to get windows. Lactate 2.8. 500ml albumin x1 -> cardiac index improved to 1.64. Was able to wean off of NE and attempted to wean Epi for CI > 2.2. Was able to wean off milrinone on 11/18 - ICD in place and reactivated post op - wean Epi by 0.01 every 24hr for ScvO2>60 - vasopressin for MAP > 65 Assessment & Plan (11/19/2019 5:16 AM CDT): Preop EF 30-40%. History of ICM s/p [employer] ICD. Post CPB RUBI with preserved RV function, EF 30-40% on Epi 0.1 and milrinone 0.25. Intraop pt had low cardiac index of 1.4 at the beginning of the procedure, Epi at 0.1mcg/kg/min was initiated with improvement to 1.7. After chest closure it dropped to 1.1 and milrinone at 0.25mcg/kg/min was added. Last cardiac index prior to arrive to ICU was 1.3. On arrival to ICU cardiac index was 1.1 with CVP 3-4, SVO2 50%. Attempted bedside TTE but unable to get windows. Lactate 2.8. 500ml albumin x1 -> cardiac index improved to 1.64. Was able to wean off of NE and attempted to wean Epi for CI > 2.2 - ICD in place and reactivated post op - wean Epi by 0.01 every 24hr for ScvO2>60 and keep milrinone 0.25 - vasopressin for MAP > 65 Assessment & Plan (11/17/2019 10:53 PM CDT): Preop EF 30-40%. History of ICM s/p [employer] ICD. Post CPB RUBI with preserved RV function, EF 30-40% on Epi 0.1 and milrinone 0.25. Intraop pt had low cardiac index of 1.4 at the beginning of the procedure, Epi at 0.1mcg/kg/min was initiated with improvement to 1.7. After chest closure it dropped to 1.1 and milrinone at 0.25mcg/kg/min was added. Last cardiac index prior to arrive to ICU was 1.3. On arrival to ICU cardiac index was 1.1 with CVP 3-4, SVO2 50%. Attempted bedside TTE but unable to get windows. Lactate 2.8. 500ml albumin x1 -> cardiac index improved to 1.64 - CI remained >2 overnight, off of NE - wean Epi by 0.10 every 12hr for CI>2.2 and keep milrinone 0.25 - ICD reactivated by [employer] Assessment & Plan (11/16/2019 11:42 PM CDT): Preop EF 30-40%. History of ICM s/p [employer] ICD. Post CPB RUBI with preserved RV function, EF 30-40% on Epi 0.1 and milrinone 0.25. Intraop pt had low cardiac index of 1.4 at the beginning of the procedure, Epi at 0.1mcg/kg/min was initiated with improvement to 1.7. After chest closure it dropped to 1.1 and milrinone at 0.25mcg/kg/min was added. Last cardiac index prior to arrive to ICU was 1.3. On arrival to ICU cardiac index was 1.1 with CVP 3-4, SVO2 50%. Attempted bedside TTE but unable to get windows. Lactate 2.8. - 500ml albumin x1 -> cardiac index improved to 1.64 - CI remained >2 overnight - Keep Epi 0.1 and milrinone 0.25 - MAP goal > 65, NE up to 0.06 overnight, Hg 10.7 from 12.5, pending repeat lactate - [employer] to reactivate ICD in AM Assessment & Plan (11/16/2019 4:49 PM CDT): Preop EF 30-40%. History of ICM s/p [employer] ICD. Post CPB RUBI with preserved RV function, EF 30-40% on Epi 0.1 and milrinone 0.25. Intraop pt had low cardiac index of 1.4 at the beginning of the procedure, Epi at 0.1mcg/kg/min was initiated with improvement to 1.7. After chest closure it dropped to 1.1 and milrinone at 0.25mcg/kg/min was added. Last cardiac index prior to arrive to ICU was 1.3. On arrival to ICU cardiac index was 1.1 with CVP 3-4, SVO2 50%. Attempted bedside TTE but unable to get windows. Lactate 2.8. - 500ml albumin x1 -> cardiac index improved to 1.64 - Keep Epi 0.1 and milrinone 0.25 - MAP goal > 65, use norepi if needed - Keep intubated overnight to assure hemodynamics remain stable - Called [employer] to reactivate ICD - left voicemail and awaiting call back Acute respiratory failure 11/16/2019 Assessment & Plan (11/21/2019 2:32 AM CDT): Pt intubated following procedure. Weaned to minimal vent settings with appropriate ABG. - successfully extubated in the ICU - hypoxia to 90% s/p extubation, on 8L NC. CXR showed decreased lung volumes with atelectasis and pulm effusion - encouraged OOBTC, q1hr IS, duonebs, CPAP at night w/ hx of TUCKER - lasix for FBG -2L w/ aggressive diuresis Assessment & Plan (11/20/2019 2:55 AM CDT): Pt intubated following procedure. Weaned to minimal vent settings with appropriate ABG. - successfully extubated in the ICU - hypoxia to 90% s/p extubation, on 8L NC. CXR showed decreased lung volumes with atelectasis and pulm effusion - encouraged OOBTC, q1hr IS, duonebs, CPAP at night w/ hx of TUCKER - lasix for FBG -2L w/ aggressive diuresis Assessment & Plan (11/19/2019 5:16 AM CDT): Pt intubated following procedure. Weaned to minimal vent settings with appropriate ABG. - successfully extubated in the ICU - hypoxia to 90% s/p extubation, CXR showed decreased lung volumes with atelectasis and pulm effusion - encouraged OOBTC, q1hr IS, duonebs, CPAP at night w/ hx of TUCKER - lasix for FBG -2L - CXR also consistent with large gastric bubble, no bowel movement since arrival to ICU, increased bowel regimen to include suppository Assessment & Plan (11/17/2019 10:58 PM CDT): Pt intubated following procedure. Weaned to minimal vent settings with appropriate ABG. - successfully extubated in the ICU - hypoxia to 90% s/p extubation, CXR showed decreased lung volumes with atelectasis and pulm effusion - encouraged OOBTC, q1hr IS, duonebs, CPAP at night w/ hx of TUCKER - lasix for FBG -2L - CXR also consistent with large gastric bubble, no bowel movement since arrival to ICU, increased bowel regimen Assessment & Plan (11/16/2019 11:42 PM CDT): Pt intubated following procedure. Keeping intubated due to poor hemodynamics. CXR w/ ETT 10cm above ken, bibasilar atelectasis, trace effusions. Weaned to minimal vent settings with appropriate ABG. - successfully extubated in the ICU - VAP prophylaxis - PSV trial with goal to extubate once hemodynamics improve (likely tomorrow morning) Assessment & Plan (11/16/2019 4:49 PM CDT): Pt intubated following procedure. Keeping intubated due to poor hemodynamics. CXR w/ ETT 10cm above ken, bibasilar atelectasis, trace effusions. Weaned to minimal vent settings with appropriate ABG. - Advance ETT 6cm and f/u repeat CXR - VAP prophylaxis - PSV trial with goal to extubate once hemodynamics improve (likely tomorrow morning) Hyperkalemia 11/16/2019 11/22/2019 Assessment & Plan (11/21/2019 2:38 AM CDT): K elevated up to 6.8 intraop. Treated with 60mg IV Lasix and insulin. Postop K 4.8. - resolved - Monitor K levels prn Assessment & Plan (11/19/2019 5:16 AM CDT): K elevated up to 6.8 intraop. Treated with 60mg IV Lasix and insulin. Postop K 4.8. - resolved - Monitor K levels prn Assessment & Plan (11/17/2019 10:56 PM CDT): K elevated up to 6.8 intraop. Treated with 60mg IV Lasix and insulin. Postop K 4.8. - resolved - Monitor K levels prn Assessment & Plan (11/16/2019 4:51 PM CDT): K elevated up to 6.8 intraop. Treated with 60mg IV Lasix and insulin. Postop K 4.8. - Monitor K levels prn Anemia, unspecified 11/16/2019 11/24/19 Assessment & Plan (11/21/2019 2:38 AM CDT): No blood products intraop. Postop Hgb 12.5. Minimal chest tube output. - Monitor CT output Q1H - Hgb stabilizing - CTM hemodynamics and CT output stable, transfuse as needed for continued Hg drop or hemodynamic instability Assessment & Plan (11/19/2019 5:18 AM CDT): No blood products intraop. Postop Hgb 12.5. Minimal chest tube output. - Monitor CT output Q1H - Hg continued to drop from 10.2 to 9.3 - CTM hemodynamics and CT output stable, transfuse as needed for continued Hg drop or hemodynamic instability Assessment & Plan (11/16/2019 11:47 PM CDT): No blood products intraop. Postop Hgb 12.5. Minimal chest tube output. - Monitor CT output Q1H - CBC obtained at 2100 due to NE requirement for MAP goal, drop to 10.7 - CTM hemodynamics and CT output, transfuse as needed for continued Hg drop or hemodynamic instability Assessment & Plan (11/16/2019 4:52 PM CDT): No blood products intraop. Postop Hgb 12.5. Minimal chest tube output. - Monitor CT output Q1H - No indication for transfusion - CBC with AM labs unless clinically indicated sooner Severe mitral regurgitation 09/21/2019 11/14/2019 Obesity (BMI 30-39.9) 08/12/20182019 Assessment & Plan (11/14/2019 11:52 AM CDT): Low fat , low cholesterol diet Assessment & Plan (08/12/2018 12:51 PM [employer]): Obesity is unchanged. Discussed the patient's BMI. The BMI is above average; BMI management plan is completed. General weight loss/lifestyle modification strategies discussed (elicit support from others; identify saboteurs; non-food rewards, etc). Diet= low-carb Limit white bread, rice, pasta, potatoes, juice, energy drinks, coffee creamers with sugar, sugar sodas, candy, cake, cookies, ice cream. Be more careful with starchy vegetables like corn, carrots, and fruits. Stay away from processed foods, fast foods, fried foods. The cornerstone of this diet is lean grilled meats, green salads or cooked greens, fat-free milk, cottage cheese, nuts like [id number], protein bars with 10-15 g of protein and 20-30 g of carbohydrate. Choose whole grain breads and pastas, brown rice, sweet potatoes, read onions--these whole grains absorb more slowly thus blood sugar does not surge so high so quickly. Avoid drinking juice, eat a piece of fruit instead. Hawkins's esophagus 01/15/2014 11/22/19 20 Overview (12/05/2016): Barretts esophagus
--- OUTSIDE RECORDS SUMMARY | 2025-02-14 09:30 | XMS_ITS | Clinical Summary ---
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 Name Role Phone [facility], Cristino Sweet Unavailable Monserrat Kelley MD Unavailable [phone] Miscellaneous, Not In File Unavailable Unava ilable Junior Zaldivar PT Unavailable Unavailab Mary Lou Lopez OT Unavailable Unavailable Leo Cheema MD Unavailable [phone] Bayron Hurt MD Primary Care Provider [phone] Allergies Active Allergy Reactions Criticality Noted Date Comments Atorvastatin Muscle pain Medium 08/24/2015 [place] Pollen Eye irritation Low 04/18/2010 Medications empagliflozin (JARDIANCE) 10 mg tabletIndication s:Heart Failure Take 1 tablet (10 mg total) by mouth every morning 2 Active fluticasone propionate (FLONASE) 50 mcg/actuation nasal sprayIndications :Allergic Conjunctivitis,A llergic Rhinitis Administer 1 spray into each nostril cardiovascular specialist before breakfast Active ipratropium (ATROVENT) 21 mcg (0.03 %) nasal sprayIndications :Chronic Non-Allergic Rhinitis Administer 2 sprays into each nostril every 12 (twelve) hours Active polyvinyl alcohol-povidone (REFRESH CLASSIC) 1.4-0.6 % dropperette Administer into affected eye(s) 3 Active rosuvastatin (CRESTOR) 40 mg tabletIndication s:coronary artery disease,hyperlip idemia Take 0.5 tablets (20 mg total) by mouth nightly 4 02/23/20 25 Active venlafaxine (EFFEXOR) 75 mg tabletIndication s:anxiety Take 3 tablets (225 mg total) by mouth cardiovascular specialist before breakfast 4 Active tamsulosin (FLOMAX) 0.4 mg extended release capsuleIndicatio ns:benign prostatic hyperplasia with lower urinary tract sx Take 1 capsule (0.4 mg total) by mouth nightly [address] (PROTONIX) 40 mg EC tabletIndication s:Treatment of Non-Bleeding Gastric Disorder Take 1 tablet (40 mg total) by mouth cardiovascular specialist before breakfast 4 09/29/19 31 Active Additional Information Patient taking differently:40 mg oral2 times daily, Indications: Treatment of Non-Bleeding Gastric Disorder, Reported on 07/14/2024 metoprolol XL (TOPROL-XL) 200 mg extended release tabletIndication s:coronary artery disease,hyperten andi Take 0.5 tablets (100 mg total) by mouth nightly 4 Active Additional Information Patient taking differently: 50 mgoral Nightly, Indications: coronary artery disease, hypertension, Reported on 07/14/2024 lisinopriL (PRINIVIL,ZESTRI L) 5 mg tabletIndication s:hypertension Take 0.5 tablets (2.5 mg total) by mouth nightly 4 Active finasteride (PROSCAR) 5 mg tabletIndication s:benign prostatic hyperplasia with lower urinary tract sx Take 1 tablet (5 mg total) by mouth nightly 4 Active aspirin 81 mg enteric coated tabletIndication s:prevention of thrombosis Take 1 tablet (81 mg total) by mouth cardiovascular specialist before breakfast 4 Active cholecalciferol (VITAMIN D-3) 2000 unit tabletIndication s:Osteoporosis,V itamin D Deficiency Take 1 tablet (2,000 Units total) by mouth nightly 4 Active traMADoL (ULTRAM) 50 mg tablet Take 1 tablet (50 mg total) by mouth every 6 (six) hours as needed for pain 42 tablet 4 Active Additional Information Patient not taking.Reported on 07/14/2024 rivaroxaban (XARELTO) 20 mg tabletIndication s:Venous Thrombosis,atria l fibrillation Take 1 tablet (20 mg total) by mouth daily with dinner Please hold medication until POD14 (03/26/24) per Dr. Steward. 4 Active acetaminophen 500 mg capsule Take 2 capsules (1,000 mg total) by mouth every 6 (six) hours as needed for pain 4 Active lidocaine (ASPERCREME) 4 % adhesive patch,medicated Place 2 patches on the skin daily 30 patch 4 Active Additional Information Patient not taking.Reported on 07/14/2024 polyethylene glycol (MIRALAX) 17 gram/dose bulk powderIndication s:constipation Take 17 g by mouth daily 510 g 4 Active spironolactone (ALDACTONE) 25 mg tabletIndication s:chronic heart failure Take 1 tablet (25 mg total) by mouth nightly DO NOT RESUME UNTIL FURTHER DISCUSSION WITH PCP. 4 Active loratadine (CLARITIN) 10 mg tabletIndication s:Allergic Rhinitis Take 1 tablet (10 mg total) by mouth every morning 90 tablet 3 4 03/25/20 25 Active docusate sodium (COLACE) 100 mg capsuleIndicatio ns:constipation, Stool Softener Take 1 capsule (100 mg total) by mouth 2 (two) times a day 60 capsule 4 Active pregabalin (LYRICA) 100 mg capsuleIndicatio ns:Postoperative Acute Pain,neuropathic pain Take 1 capsule (100 mg total) by mouth 2 (two) times a day 60 capsule 5 4 Active Active Problems Problem Noted Date Diagnosed Date Flu vaccine need 07/16/2024 Assessment & Plan (07/16/2024 9:43 AM ULTRASONOGRAPHER): update Benign prostatic hyperplasia 07/16/2024 Assessment & Plan (07/16/2024 9:43 AM ULTRASONOGRAPHER): Continues on dual therapy and continues on tamsulosin and finasteride. DDD (degenerative disc disease), cervical 2023 Assessment & Plan (07/16/2024 9:43 AM ULTRASONOGRAPHER): Continue f/uw with spine and pain management and will follow response. Coronary artery disease of n ative heart with stable angina pectoris 07/16/2024 Assessment & Plan (07/16/2024 9:43 AM ULTRASONOGRAPHER): Secondary prevention for CAD and will ronna horner. Acute kidney injury 03/16/2024 Assessment & [...] On flomax/finasteride - he does not want knox, he reports he will do straight cath [...] 2022 Assessment & Plan (07/16/2024 9:42 AM ULTRASONOGRAPHER): COntinue f/u. Assessment & Plan (08/27/2023 9:15 AM ULTRASONOGRAPHER): [facility] found [facility] 6 months ago Follow up endoscopy in October to determine if change in size and plan Groin pain 08/26/2023 Impotence of organic origin 08/26/2023 Nondisplaced fracture of fif th metatarsal bone, right foot, initial encounter for closed fracture 08/26/2023 Assessment & Plan (08/27/2023 9:17 AM ULTRASONOGRAPHER): [facility]; in [facility]opedic shoe Nontraumatic rupture of tendons of biceps (long head) 08/26/2023 Osteoarthritis 08/26/2023 Other retention of urine 08/26/2023 Pain in left foot 08/26/2023 Paresthesia of skin 08/26/2023 Peripheral vascular disease, unspecified 023 Assessment & Plan (07/16/2024 9:42 AM ULTRASONOGRAPHER): Reivewed claudicatory sypmtoms and secondary prevnetion for [...] 07/05/2021 Assessment & Plan (09/07/2021 6:29 PM ULTRASONOGRAPHER): significant burden on device interrogation with symptoms [...] 01/06/2020 Assessment & Plan (07/16/2024 9:41 AM ULTRASONOGRAPHER): Continues on sprionolactone, metoprolol XL 50mg, lisionpril [...] hold Paroxysmal atrial fibrillation with RVR 01/06/20 Assessment & Plan (07/16/2024 9:41 AM ULTRASONOGRAPHER): COntinues on metoprolol XL and DOAC - [...] (11/29/2019 9:15 AM CDT): Recent diagnosed with TUCKER Has not [...] (11/10/2019): Added automatically from request for surgery [id number] Assessment & Plan (11/29/2019 9:15 AM CDT): S/p MVR (bio) on 11/16/2019 [employer] off 11/27 Unable to start beta sandy as BP soft and down to the mid 80s this morning with return to > 100 without intervention CXR TTE in the morning Creatinine now at baseline - continue to hold lasix. Discharge planning - home when able Assessment & Plan (11/28/2019 1:09 PM CDT): S/p MVR (bio) on 11/16/2019 [employer] off 11/27 Unable to start beta sandy [...] - Statin daily for HLD - Eventual B-snady for S/P CABG - Colace, Senna, and [...] PM CDT): S/p MVR (bio) on 11/16/2019 [employer] off today EPW out this morning Unable to start beta sandy as BP soft No need for TTE per Dr. Kelley Creatinine now at baseline - still holding lasix. Not on home diuretic and no signs of edema. Cardiomyopathy, ischemic 09/21/2019 Assessment & Plan (07/16/2024 9:42 AM ULTRASONOGRAPHER): No s/s fo fluid overload. Assessment & Plan (09/07/2021 6:30 PM ULTRASONOGRAPHER): Appear compensated. 10/2019 TTE EF 45% Continue [...] nightly Assessment & Plan (09/07/2021 6:29 PM ULTRASONOGRAPHER): Continue home meds Atrial fibrillation 09/21/2019 Assessment [...] daily Assessment & Plan (09/07/2021 6:29 PM ULTRASONOGRAPHER): Continue metop and xarelto Assessment & Plan [...] 08/12/2018 Assessment & Plan (08/12/2018 1:00 PM ULTRASONOGRAPHER): Acute on Chronic back pain Pt. With hx of back pain. Had Surgery on back about a year ago at OR. Was doing fine until about 3 months ago when pain started to come back and it has progressively gotten worse. He went to OR and now has a cane and back brace to use. He is planning on starting PT at the OR in September Will try Medrol dose pack [...] for interested patients with access to an fiber optics supervisor. Spine Inspection-nomal Spine palpation-normal Reflexes-Patellar- Decreased on [...] 01/15/2014 Assessment & Plan (07/16/2024 9:42 AM ULTRASONOGRAPHER): Reivewed use of venlafaxinea nd will monitor response. Assessment & Plan (02/23/2024 9:37 AM CDT): Chronic, stable Continue Venlafaxine 225 mg daily Assessment & Plan (11/21/2019 2:37 AM CDT): -venlefaxine -ramelteon prn qhs Atherosclerotic heart diseas e of [place] coronary artery without angina pectoris 02/22/2013 Tobacco use 02/22/2013 Other specified postprocedural states 02/19/2013 Personal history of other di seases of the circulatory system 02/19/2013 Hypertensive heart disease with heart failure Hyperlipidemia 12/09/2012 Assessment & Plan (02/23/2024 9:35 AM CDT): Chronic, stable Continue 20 mg nightly [facility] Presence of aortocoronary bypass graft 3 Resolved Problems Problem Noted Date Diagnosed Date [...] K levels prn Anemia, unspecified 11/16/2019 11/24/19 20 Assessment & Plan (11/21/2019 2:38 AM CDT): [...] diet Assessment & Plan (08/12/2018 12:51 PM ULTRASONOGRAPHER): Obesity is unchanged. Discussed the patient's BMI. [...] greens, fat-free milk, cottage cheese, nuts like qbhwaex-lnqrbmu-viezrnz, protein bars with 10-15 g of protein and 20-30 g of carbohydrate. Choose whole grain breads and pastas, brown rice, sweet potatoes, read onions--these whole grains absorb more slowly thus blood sugar does not surge so high so quickly. Avoid drinking juice, eat a piece of fruit instead. Payne's esophagus 01/15/2014 11/22/19 Overview (12/05/2016): Barretts esophagus Encounters Date Type Department Care Team Description 11/23/2024 2:00 PM CDT Office Visit [facility] Neurosurgery [address] [place] [address] [address] [place] [address] Chris Steward MD Cervical myelopathy (HCC); Cervical vertebral fusion 11/23/2024 1:25 PM CDT - 11/23/2024 11:59 PM CDT Hospital Encounter [id number] [address] [place] [address] [address] [place] [address] S/P lumbar fusion; Lumbar stenosis with neurogenic claudication; Low back pain, non-specific Discharge Disposition: Discharge to home or self care 11/23/2024 Orders Only [facility] Neurosurgery [address] [place] [address] Medical Office Building [address] [place] [address] Chris Steward MD Cervical myelopathy (HCC) (Primary Dx); Cervical vertebral fusion; S/P lumbar fusion; Lumbar stenosis with neurogenic claudication; Cervical disc disorder with myelopathy of cervicothoracic region; Cervical disc disorder with myelopathy of mid-cervical region; Spondylosis with myelopathy; Left arm weakness; Low back pain, non-specific; Subcutaneous mass from Last 3 Months Immunizations Immunization Administration Dates Next Due Hep B Vaccine 12/29/2003,06/06/2003 Influenza, Quad, Adjuvantate d, Intramuscular 07/31/2023 Influenza, Quadrivalent, Hig h Dose, Preservative Free, Intrr 06/17/2022,07/12/2021,06/27/2020 Influenza, Quadrivalent, Spl it, Preservative Free, Intramuscular 06/16/2018,06/16/2017 Influenza, Split 06/14/2010 Influenza, Trivalent, Preser vative Free, Intramuscular 07/05/2016,05/22/2015 Influenza, Unspecified 08/01/2023,2022,06/20/2020,08/01,06/29/2018,06/10/2014,05/28/2013 ,05/28/2012,06/05/2011,06/14/2010,05/03 Moderna SARS-CoV-2 Monovalen t Vaccination (12+ YRS) 12/02/2020,11/05/2020 Pneumococcal Conjugate Pcv20 09/24/2023 Pneumococcal Polysaccharide PPV23 10/10/2020,12/2013 Pneumococcal, Unspecified 05/31/2009,08/09/2003 Td, Unspecified 05/27/2011 Tdap 04/18/2010 Surgical History Surgery Date Site/Laterality Comments OTHER SURGICAL HISTORY Myocardial infarction: 4-vessel cabg - 1993, stent - sep 2009 and iCD/pacemaker May 28 OTHER SURGICAL HISTORY payne's esophagus: Annual EGD TOE SURGERY 09/07/2018 Right Shorten little toe on right foot CORONARY ARTERY BYPASS GRAFT LAMINECTOMY KNEE ARTHROPLASTY Bilateral HIP ARTHROPLASTY 06/01/2019 - 07/01/2019 Left PAROTIDECTOMY Right Superficial OTHER SURGICAL HISTORY 09/01/2018 - 08/31/2019 AICD / Pacemaker generator change CORONARY ANGIOPLASTY WITH STENT PLACEMENT ~2016 Type and location unknown . CARDIAC ELECTROPHYSIOLOGY STUDY AND ABLATION ~2015 REVISION TOTAL HIP ARTHROPLASTY CARDIAC DEFIBRILLATOR PLACEMENT CARDIAC VALVE REPLACEMENT 11/16/2019 mitral valve replacement BACK SURGERY 03/12/2024 Medical History Medical History Date Comments Myocardial infarction (HCC) 1975 Myoc ardial infarction Hx Other Medical 2008 payne's esoph jairon Hypertension Hypercholesteremia Coronary artery disease Previous PCI Ischemic cardiomyopathy Mitral regurgitation Atrial fibrillation (HCC) 2011 Status post ablation Warthin's tumor of parotid gland Ischemic cardiomyopathy Hyperkalemia 11/16/2019 Sleep apnea can't tolerate c pap Chest pain Ear problems CHF (congestive heart failure) (HCC) Gastric reflux Disc disorder of lumbar region Sinusitis Family History Medical History Relation Name Comments Cancer Brother 1 Coronary artery disease Brother 2 Dawna nary artery disease; Heart disease Brother 2 Cancer Father Pancreatic cancer Father Cancer, pa ncreatic; Heart disease Maternal Grandfather Cancer Maternal Grandmother Breast cancer Mother Cancer, breast ; Cancer Mother Coronary artery disease Mother Dawna nary artery disease; Diabetes Mother Heart disease Mother Hypertension Mother Heart disease Paternal Grandfather Cancer Paternal Grandmother Heart disease Sister Anesthesia problems Neg Hx Relation Name Status Comments Brother 1 Alive Brother 2 Father Maternal Grandfather Maternal Grandmother Mother Paternal Grandfather Paternal Grandmother Sister Social History Tobacco Use Types Packs/Day Years Used Date Smoking Tobacco: Former Cigarettes 2 49 1 - 2019 Smokeless Tobacco: Never Tobacco Cessation:Counseling Given: Not Answered Alcohol Use Standard Drinks/Week Comments Yes 0 (1 standard drink = 0.6 oz pur e alcohol) [facility] [employer] Answer Date Recorded In the past 12 months has e [employer], gas, oil, or water [email or web address] threatened to shut off services in your home? No 02/23/2024 Humiliation, Afraid, Rape, and Kick questionnair e Answer Date Recorded Within the last year, have y ou been afraid of your partner or ex-partner? No 02/23/2024 Within the last year, have y ou been humiliated or emotionally abused in other ways by your partner or ex-partner? No Within the last year, have y ou been kicked, hit, slapped, or otherwise physically hurt by your partner or ex-partner? No 02/23/2024 Within the last year, have y ou been raped or forced to have any kind of sexual activity by your partner or ex-partner? No 02/23/2024 Social Connection and Isolat ion Panel [NHANES] Answer Date Recorded In a typical week, how many times do you talk on the phone with family, friends, or neighbors? More than three times a week 02/23/2024 How often do you get togethe r with friends or relatives? More than three times a week 02/23/2024 How often do you attend chur or restorationism services? Never 02/23/2024 Do you belong to any clubs o r organizations such as advent groups, unions, fraternal or athletic groups, or school groups? Yes 02/23/2024 How often do you attend meet ings of the clubs or organizations you belong to? Never 02/23/2024 Are you , , di vorced, , never , or living with a partner? 02/23/2024 AUDIT-C Answer Date Recorded Q1: How often do you have a drink containing alc ohol? Never 07/27/2024 Q2: How many drinks containi ng alcohol do you have on a typical day when you are drinking? 3 or 4 07/27/2024 Q3: How often do you have six or more drinks on one occasion? Never 07/27/2024 Overall Financial Resource Strain (CARDIA) Answe r Date Recorded How hard is it for you to pa y for the very basics like food, housing, medical care, and heating? Not hard at all 02/23/2024 PHQ-2 Answer Date Recorded PHQ-2 Total Score (If total score is 3 or more points, staff should administer the PHQ-9) 0 07/14/2024 [facility]ational Stress Questionnaire Answer Date Recorded Do you feel stress - tense, restless, nervous, or anxious, or unable to sleep at night because your mind is troubled all the time - these days? Rather much 02/23/2024 Exercise Vital Sign Answer Date Recorde d On average, how many days pe r week do you engage in moderate to strenuous exercise (like a brisk walk)? 0 days 02/23/2024 On average, how many minutes do you engage in exercise at this level? 0 min 02/23/2024 Hunger Vital Sign Answer Date Recorded Within the past 12 months, y ou worried that your food would run out before you got the money to buy more. Never true 02/23/20 24 Within the past 12 months, t he food you bought just didn't last and you didn't have money to get more. Never true 02/23/2024 PRAPARE - Transportation Answer Date Re corded In the past 12 months, has l ack of transportation kept you from medical appointments or from getting medications? No 01/31 In the past 12 months, has l ack of transportation kept you from meetings, work, or from getting things needed for daily living? No 02/23/2024 PHQ-9 Answer Date Recorded PHQ-9 Total Score 2 02/23/2024 Housing Stability Vital Sign Answer Dereck e Recorded In the last 12 months, was t here a time when you were not able to pay the mortgage or rent on time? No 02/23/2024 In the past 12 months, how m any times have you moved where you were living? 0 02/23/2024 At any time in the past [address] [facility], were you homeless or living in a longterm (including now)? No 02/23/2024 Personal Safety Answer Date Recorded Have you ever been in or are you currently in a harmful physical or emotional relationship or is someone making you feel afraid or unsafe? 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 Not on file Not on file Not on fi le Obstetrics History Last Filed Vital Signs Vital Sign Reading Time Taken Comments Blood Pressure 98/62 07/14/2024 1:31 PM ULTRASONOGRAPHER Pulse 74 07/14/2024 1:31 PM ULTRASONOGRAPHER Temperature 36.4 C (97.6 F) 07/14/2024 1:31 PM ULTRASONOGRAPHER Respiratory Rate 18 07/14/2024 1:31 PM ULTRASONOGRAPHER Oxygen Saturation 97% 07/14/2024 1:31 PM ULTRASONOGRAPHER Inhaled Oxygen Concentration - - Weight 96.2 kg (212 lb) 11/23/2024 1:59 PM CDT Height 180.3 cm (5' 11) 11/23/2024 1:59 PM CDT Body Mass Index 29.57 11/23/2024 1:59 PM CDT Plan of Treatment Health Maintenance Due Date Last Done Comments Zoster Vaccine (1 of 2) 2004 Lung Cancer Screening 02/01/2025 Postpo brandon from 2004 (Patient declined, but will receive in the future) Well Visit 65+ 02/22/2025 02/23/2024, 01/29/2023 Depression Screening 07/14/2025 07/14/2024, 02/23/2024, 02/23/2024, Additional history exists Fall Risk Assessment 07/14/2025 07/14/2024, 03/25/2024, 03/17/2024, Additional history exists Colon Cancer Screening-Colonoscopy 01/30/2029 DTaP/Tdap/Td Vaccine (4 - Td or Tdap) 10/27/2034 10/27/2024, 05/27/2011, 04/18/2010 Hepatitis B Screening Completed 12/29/2003, 003 Covid-19 Vaccine Discontinued 12/02/2020, 11/05/2020 Abdominal Aortic Aneurysm (AAA) Screen Completed 06/22/2023, 10/19/2019 Pneumococcal vaccine 65+ Completed 024, 10/10/2020, 07/06/2014, Additional history exists Hepatitis C Screening Completed 02/19/2024 Prostate Cancer Screening-PSA Discontinued 02/19/2024 Influenza Vaccine Completed 09/01/2024, , 08/01/2023, Additional history exists Goals Goal Patient Goal Type Associated Problems Recent Progress Patient-Stated? Author CCM Chronic Pain Care Plan Chronic Care Management No change(12/29 7:30 AM CDT) No Ashley garza, Raisa Richardson, RN Note: Problem: Chronic Pain Goals: 1. Minimize further functional decline 2. Maximize quality of life 3. Control pain Strategies: - Activity/exercise program recommendation - Conservative stepwise pain medicine strategy with multi-disciplinary approach - Recommend healthy lifestyle strategies and compensatory methods as needed Medical Devices Implanted Type Area Cnc Applications Engineer Device Identifier Shelf Expiration Date Model / Serial / Lot Medtronic Icd [id number]/31/20 18 Implanted:05/01 (Quantity not on file) ICD Left: Chest Medtronic Cardiac Rhythm Mgmt [id number] / [id number] / Medtronic Ra Lead 5076-52-05/28/20 10 Implanted:05/28 (Quantity not on file) Lead Heart Medtronic Cardiac Rhythm Mgmt 5076-52 / [id number] / Medtronic Rv Lead 6935-65-05/28/20 10 Implanted:05/28 (Quantity not on file) Lead Heart Medtronic Cardiac Rhythm Mgmt 6935-65 / [id number] / Medtronic Lv Lead [id number]/09/20 13 Implanted:02/08 (Quantity not on file) Lead Heart Medtronic Cardiac Rhythm Mgmt 4296-88 / [id number] / [employer] [id number] System 6-12fr Mvp Venous Closure Vascade - [id number] Implanted:Qty: 1 on 09/07/2021 by Leo Brito MD at [facility] Other - see comments Right: Groin [employer] 06/14/2023 [id number]-[id number] / / [id number] [employer] [id number] System 6-12fr Mvp Venous Closure Vascade - [id number] Implanted:Qty: 1 on 09/07/2021 by Leo Brito MD at [facility] Other - see comments Right: Groin [employer] 06/14/2023 [id number]-1 0U / / [employer] [id number] System 6-12fr Mvp Venous Closure Vascade - [id number] Implanted:Qty: 1 on 09/07/2021 by Leo Brito MD at [facility] Other - see comments Left: Groin [employer] 06/14/2023 800-612C-[id number] [id number] / / [id number] [employer] [id number] Jose-Edwa rds Perimount Magna 33mm Bioprosthesis Ease Heart - [id number] - [id number] Implanted:Qty: 1 on 11/16/2019 by Monserrat Kelley MD at [facility] Prosthetic Valve N/A: Heart [employer] 09/20/2023 [id number] / [id number] / Cardiac Stents Implanted:Qty: 3 Heart Description:States there are 3 stents total. Last one done in 2017 at the OR on [facility] in [place] Depuy Synthes Spine 3.5mm 40mm Lordosis Tj Spinal Titanium [id number] - [id number] Implanted:Qty: 1 on 05/23/2023 by Chris Steward MD at [facility] N/A: Spine Cervical Depuy Synthes Spine [id number] / / Depuy Synthes Spine Graft Bone Filler Sm Inj Fibergraft Bg Gps 4cc Putty [id number] - [id number] Implanted:Qty: 1 on 05/23/2023 by Chris Steward MD at [facility] N/A: Spine Cervical Depuy Synthes Spine 08/28/2024 [id number] / / [id number] Depuy Synthes Spine Screw Spinal Set Posterior Cervical Solid Symphony Titanium [id number] - [id number] Implanted:Qty: 6 on 05/23/2023 by Chris Steward MD at [facility] N/A: Spine Cervical Depuy Synthes Spine [id number] / / Depuy Synthes Spine Screw Spinal Posterior Cervical Polyaxial Solid Symphony 3.5x14mm [id number] - [id number] Implanted:Qty: 3 on 05/23/2023 by Chris Steward MD at [facility] N/A: Spine Cervical Depuy Synthes Spine [id number] / / Depuy Synthes Spine Screw Spinal Posterior Cervical Polyaxial Solid Symphony 3.5x16mm [id number] - [id number] Implanted:Qty: 2 on 05/23/2023 by Chris Steward MD at [facility] N/A: Spine Cervical Depuy Synthes Spine [id number] / / Depuy Synthes Spine 3.5mm 35mm Lordosis Tj Spinal Titanium [id number] - [id number] Implanted:Qty: 1 on 05/23/2023 by Chris Steward MD at [facility] N/A: Spine Cervical Depuy Synthes Spine [id number] / / Depuy Synthes Spine Screw Spinal Posterior Cervical Polyaxial Solid Symphony 3.5x12mm [id number] - [id number] Implanted:Qty: 1 on 05/23/2023 by Chris Steward MD at [facility] N/A: Spine Cervical Depuy Synthes Spine [id number] / / Allosource Canpac Nonpurge Frozen Graft 25cc Bone [id number] - [id number] - [id number] Implanted:Qty: 1 on 03/12/2024 by Chris Steward MD at [facility] Spine Lumbar Allosource 01/22/2029 [id number] / [id number] / [employer] Graft Bone Magnetos 10cc 1-2mm Granules In Moldable Putty [id number] - [id number] Implanted:Qty: 1 on 03/12/2024 by Chris Steward MD at [facility] Spine Lumbar [employer] [id number] / / [employer] 1134.001 Creo Spinal Cap Locking Nonsterile Mis - [id number] Implanted:Qty: 4 on 03/12/2024 by Chris Steward MD at [facility] N/A: Spine Lumbar [employer] 1134.0010 / / [employer] 1134.01 Creo Mis 30mm Modular Polyaxial Tulip Head Screw Bone - [id number] Implanted:Qty: 4 on 03/12/2024 by Chris Steward MD at [facility] N/A: Spine Lumbar [employer] 1134.0100 / / [employer] Creo Amp 6.5mm 45mm Cannulated Modular Spine Screw Bone 1067.4645 - [id number] Implanted:Qty: 1 on 03/12/2024 by Chris Steward MD at [facility] N/A: Spine Lumbar [employer] 1067.4645 / / [employer] Creo Amp 6.5mm 55mm Cannulated Modular Spine Screw Bone 1067.4655 - [id number] Implanted:Qty: 1 on 03/12/2024 by Chris Steward MD at [facility] N/A: Spine Lumbar [employer] 1067.4655 / / [employer] Creo Amp 7.5mm 55mm Cannulated Modular Spine Screw Bone 1067.4755 - [id number] Implanted:Qty: 2 on 03/12/2024 by Chris Steward MD at [facility] N/A: Spine Lumbar [employer] 1067.4755 / / [employer] Altera [id number] 15d Spacer Spinal 1124.1233 - [id number] Implanted:Qty: 1 on 03/12/2024 by Chris Steward MD at [facility] N/A: Spine Lumbar [employer] 1124.1233 / / [facility] Medical [id number] Creo Mis 5.5mm 50mm Curve Tj Spinal Titanium - [id number] Implanted:Qty: 2 on 03/12/2024 by Chris Steward MD at [facility] N/A: Spine Lumbar [facility] Medical 1134.7050 / / Procedures Procedure Name Priority Date/Time Associated Diagnosis Comments XR SCOLIOSIS 6 OR MORE VIEWS Schedule Routine, Read Routine (OP Routine) 11/23/2024 1:46 PM CDT S/P lumbar fusion Lumbar stenosis with neurogenic claudication Low back pain, non-specific HEPATITIS C ANTIBODY Routine 02/19/2024 4:13 PM CDT Encounter for hepatitis C screening test for low risk patient PSA SCREEN Routine 02/19/2024 4:13 PM CDT Prostate cancer screening CTA CHEST ABDOMEN PELVIS Schedule Routine, Read Routine (OP Routine) 10/19/2019 10:57 AM ULTRASONOGRAPHER Severe mitral regurgitation from Last 3 Months or Most Recently Relevant to Health Maintenance Results * XR Scoliosis 6 or More Views (11/23/2024 1:46 PM CDT) Anatomical Region Laterality Modality Spine N/A Computed Radiogr aphy 11/23/2024 1:55 PM CDT Impressions 11/23/2024 1:55 PM CDT 1. Unchanged combined anterior and posterior instrumented fusion at L4-L5 with mild lumbar levoscoliosis and moderate to severe degenerative disc disease Electronically signed by: Lucio Montoya MD Narrative 11/23/2024 1:55 PM CDT EXAMINATION: XR SCOLIOSIS 6 OR MORE VIEWS HISTORY: Back pain. FINDINGS: Comparison to 07/27/2024. Mild levoscoliosis of the lumbar spine centered at L3. Mild right coronal and moderate positive sagittal imbalance. No significant pelvic obliquity. Unchanged combined anterior and posterior instrumented fusion at L5-S1. Hardware is intact. Vertebral body heights are unchanged with endplate irregularities at L2 and L3 which may be degenerative in nature. Multilevel degenerative disc disease at the unfused segments greatest and moderate to severe at L4-L5. Sagittal alignment is normal in neutral position. No abnormal motion with bending. Atherosclerotic calcifications. Left total hip arthroplasty in expected positioning. Unchanged posterior attachment effusion from C3-C5. Left chest wall pacemaker/AICD, mediastinal wires, sternotomy wires, and mitral valve replacement unchanged Procedure Note Lucio Montoya MD - 11/23/2024 EXAMINATION: XR SCOLIOSIS 6 OR MORE VIEWS HISTORY: Back pain. FINDINGS: Comparison to 07/27/2024. Mild levoscoliosis of the lumbar spine centered at L3. Mild right coronal and moderate positive sagittal imbalance. No significant pelvic obliquity. Unchanged combined anterior and posterior instrumented fusion at L5-S1. Hardware is intact. Vertebral body heights are unchanged with endplate irregularities at L2 and L3 which may be degenerative in nature. Multilevel degenerative disc disease at the unfused segments greatest and moderate to severe at L4-L5. Sagittal alignment is normal in neutral position. No abnormal motion with bending. Atherosclerotic calcifications. Left total hip arthroplasty in expected positioning. Unchanged posterior attachment effusion from C3-C5. Left chest wall pacemaker/AICD, mediastinal wires, sternotomy wires, and mitral valve replacement unchanged IMPRESSION: 1. Unchanged combined anterior and posterior instrumented fusion at L4-L5 with mild lumbar levoscoliosis and moderate to severe degenerative disc disease Electronically signed by: Lucio Montoya MD Crhis Steward MD IMG XR PROCEDURES Final Re sult * PSA screen (02/19/2024 4:13 PM CDT) PSA-Total 0.26 <=5.40 ng/mL Comment: Interpretive Data AGE SEX REFERENCE INTERVAL 0 minutes-150 years Female None 0 minutes-49 years Male None 50-59 years Male 0-3.90 60-69 years Male 0-5.40 70-79 years Male 0-6.20 80-150 years Male 0-6.20 The Chance PSA Total assay procedure was used. Results from different manufacturers or methods may not be comparable. Serial testing should be performed using the same method. Current interpretive data last revised 22. Testing performed by: [facility], [address] [place] [address], [place]., [address] Blood 02/19/2024 4:13 PM CDT 02/19/2024 7:43 PM CDT Katia Rodriguez NP LAB BLOOD ORDERABLES Final Resul t Performing Organization Address City/[facility] Co de Phone Number [facility]) [address] [place] [address] * Hepatitis C antibody Blood (02/19/2024 4:13 PM CDT) Hep C Ab Nonreactive Nonreactive Comment: Interpretive Data Nonreactive: Antibodies to HCV not detected. Does NOT exclude the possibility of recent exposure to HCV. Equivocal: Equivocal for HCV antibodies. Supplemental molecular testing will be automatically performed to determine infection status in accordance with current CDC screening recommendations. Reactive: Positive for HCV antibodies. This may represent current or past HCV infection. Supplemental molecular testing will be automatically performed to determine current infection status in accordance with current CDC screening recommendations. Interpretive data was last revised on 2019. Testing performed by: [facility], [address] [place] [address], [facility] Blood 02/19/2024 4:13 PM CDT 02/19/2024 7:43 PM CDT Katia Rodriguez ICT QUALITY ASSURANCE ENGINEER LAB MICROBIOLOGY - GENERAL ORDER ESEQUIEL Final Result Performing Organization Address [facility] de Phone Number [facility]) [address] [place] [id number] * CTA Chest Abdomen Pelvis (10/19/2019 10:57 AM ULTRASONOGRAPHER) Anatomical Region Laterality Modality Body N/A Computed Tomogra phy 10/19/2019 2:48 PM ULTRASONOGRAPHER Impressions 10/19/2019 4:11 PM ULTRASONOGRAPHER 1. Reconstructions of the substernal vascular anatomy have been made. Distances from the sternum to vascular structures are detailed above. 2. Abdominal aortic, common iliac, external iliac and femoral artery measurements in preparation for minimally invasive cannulation procedure as described above. The left common femoral artery measures 6 mm in diameter with moderate calcification. Dictated by: Tom Lewis M.D. The radiology attending physician has personally reviewed this study, and had reviewed and/or edited this written report and agrees with it. Electronically signed by: Doyle Solis M.D. Narrative 10/19/2019 4:11 PM ULTRASONOGRAPHER EXAMINATION: Computed tomography angiography of the chest, abdomen and pelvis with intravenous contrast HISTORY: 64-year-old man with mitral valve insufficiency TECHNIQUE: Transaxial computed tomographic angiography images of the chest, abdomen and pelvis were obtained with intravenous contrast according to the standard protocol after the uneventful administration of 100 mL Opti-Ray 350 intravenous contrast. COMPARISON: No priors available FINDINGS: Sternal wires: There are 6 sternal wires. First sternal wire is 17 mm anterior to the left brachiocephalic vein. Second sternal wire is 36 mm anterior to the ascending aorta. Third sternal wire is 42 mm anterior to the ascending aorta. Fourth sternal wire is 12 mm anterior to the right ventricular outflow tract. Fifth sternal wire abuts the right ventricle. Sixth sternal wire abuts the right ventricle. Chest: Presence of atherosclerosis in the ascending aorta: none. This atherosclerosis is noncalcified . Presence of atherosclerosis in the descending aorta: none. This atherosclerosis is noncalcified. Abdominal Aortic and Pelvic Arterial Smallest Diameter Measurements (made from centerline curved MPRs): Infrarenal aorta: 16 mm x 15 mm Right common iliac artery: 12 mm x 9 mm. There is moderate calcification. Left common iliac artery: 9 mm x 8 mm . There is moderate calcification. There is mild tortuosity of the bilateral common iliac arteries. This is equal in distribution . Right external iliac artery: 8 mm x 6 mm. There is moderate calcification. Left external iliac artery: 8 mm x 7 mm. There is no calcification. There is mild tortuosity of the bilateral external iliac arteries. This is equal in distribution. Right common femoral artery: 7 mm. There is moderate calcification. Left common femoral artery: 6 mm. There is moderate calcification. There is no tortuosity of the bilateral femoral arteries. This is equal in distribution. Other findings: Elevation of left hemidiaphragm. Displaced left sided rib fractures are noted involving ribs 5,6,7 and 8. PETERSON graft connects to obtuse marginal and continues posteriorly to connect to the posterior descending artery. 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 Calcification of the cordae tendinae is also likely related to prior infarct. There is dense calcification of the left anterior descending coronary artery. The left atrium is mildly enlarged. [place] coronary arteries are atherosclerotic. There is multilevel degenerative disc disease most pronounced and moderate at L2-L3. There are 2 cysts in the left kidney. There is a left hip arthroplasty. There is moderate atherosclerosis of the abdominal aorta and its branches including the celiac origin which is mildly narrowed. Procedure Note Doyle Solis MD - 10/19/2019 EXAMINATION: Computed tomography angiography of the chest, abdomen and pelvis with intravenous contrast HISTORY: 64-year-old man with mitral valve insufficiency TECHNIQUE: Transaxial computed tomographic angiography images of the chest, abdomen and pelvis were obtained with intravenous contrast according to the standard protocol after the uneventful administration of 100 mL Opti-Ray 350 intravenous contrast. COMPARISON: No priors available FINDINGS: Sternal wires: There are 6 sternal wires. First sternal wire is 17 mm anterior to the left brachiocephalic vein. Second sternal wire is 36 mm anterior to the ascending aorta. Third sternal wire is 42 mm anterior to the ascending aorta. Fourth sternal wire is 12 mm anterior to the right ventricular outflow tract. Fifth sternal wire abuts the right ventricle. Sixth sternal wire abuts the right ventricle. Chest: Presence of atherosclerosis in the ascending aorta: none. This atherosclerosis is noncalcified . Presence of atherosclerosis in the descending aorta: none. This atherosclerosis is noncalcified. Abdominal Aortic and Pelvic Arterial Smallest Diameter Measurements (made from centerline curved MPRs): Infrarenal aorta: 16 mm x 15 mm Right common iliac artery: 12 mm x 9 mm. There is moderate calcification. Left common iliac artery: 9 mm x 8 mm . There is moderate calcification. There is mild tortuosity of the bilateral common iliac arteries. This is equal in distribution . Right external iliac artery: 8 mm x 6 mm. There is moderate calcification. Left external iliac artery: 8 mm x 7 mm. There is no calcification. There is mild tortuosity of the bilateral external iliac arteries. This is equal in distribution. Right common femoral artery: 7 mm. There is moderate calcification. Left common femoral artery: 6 mm. There is moderate calcification. There is no tortuosity of the bilateral femoral arteries. This is equal in distribution. Other findings: Elevation of left hemidiaphragm. Displaced left sided rib fractures are noted involving ribs 5,6,7 and 8. PETERSON graft connects to obtuse marginal and continues posteriorly to connect to the posterior descending artery. 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 Calcification of the cordae tendinae is also likely related to prior infarct. There is dense calcification of the left anterior descending coronary artery. The left atrium is mildly enlarged. [place] coronary arteries are atherosclerotic. There is multilevel degenerative disc disease most pronounced and moderate at L2-L3. There are 2 cysts in the left kidney. There is a left hip arthroplasty. There is moderate atherosclerosis of the abdominal aorta and its branches including the celiac origin which is mildly narrowed. IMPRESSION: 1. Reconstructions of the substernal vascular anatomy have been made. Distances from the sternum to vascular structures are detailed above. 2. Abdominal aortic, common iliac, external iliac and femoral artery measurements in preparation for minimally invasive cannulation procedure as described above. The left common femoral artery measures 6 mm in diameter with moderate calcification. Dictated by: Tom Lewis M.D. The radiology attending physician has personally reviewed this study, and had reviewed and/or edited this written report and agrees with it. Electronically signed by: Doyle Solis M.D. Monserrat Kelley MD IM CT PROCEDURES Final Result from Last 3 Months or Most Recently Relevant to Health Maintenance Additional Health Concerns Infection Onset Date Last Indicated MDR gram neg/ESBL 11/21/2019 11/21/2019 Insurance MEDICARE [facility] [place] [address] [place] [address] CHOICE [facility] COMM[facility] CARE OR COMMUNITY CARE MEDICARE MEDICARE [facility] HEALTH BENEFIT PLAN [place], [place] Advance Directives For more information, please contact: [phone] * Full Code (Latest Code Status on File) Date Activated Date Inactivated Comments 03/13/2024 12:44 AM 03/17/2024 5:27 PM * Full Code Date Activated Date Inactivated Comments 05/24/2023 7:13 AM 05/25/2023 10:05 PM * Full Code Date Activated Date Inactivated Comments 04/04/2023 10:30 AM 04/05/2023 4:51 AM * Full Code Date Activated Date Inactivated Comments 09/07/2021 4:46 PM 09/08/2021 6:53 PM * Full Code Date Activated Date Inactivated Comments 09/07/2021 4:46 PM 09/07/2021 4:46 PM Care Teams Movie Shot Camera Operator Relationship Specialty Start Date End Date Bayron Hurt MD [address] [place] [address] PCP - General Family Medicine [facility] [address] [place] [address] Referring Physician Cardiology 09/10/19 Monserrat Kelley MD [address] [place] [address] Surgeon Cardiothoracic Surgery 11/29/19 Miscellaneous, Not In File 11/29/19 Junior Zaldivar, PT Physical Therapist Physical Therapy 04/10/23 Mary Lou Carrasco, OT Occupational Therapist Occupational Therapy 09/08/23 Leo Cheema MD [address] [place] [address] Consulting Physician Family Medicine 03/17/24
--- OUTSIDE RECORDS SUMMARY | 2025-02-14 09:30 | XMS_ITS | Referral Summary ---
Author Organization [facility] Address [address] [place] [address] Care Team Providers Care Acute Specialist Name Role Phone [facility] Monserrat Kelley MD Unavailable [phone] Miscellaneous, Not In File Unavailable Unava ilable Junior Zaldivar PT Unavailable Unavailab Mary Lou Lopez OT Unavailable Unavailable Leo Cheema MD Unavailable [phone] Bayron Hurt MD Primary Care Provider [phone] Encounters Date Type Department Care Team Description 11/23/2024 Orders Only [facility] Neurosurgery [address] [facility] [address] [place] [address] Chris Steward MD Cervical myelopathy (HCC) (Primary Dx); Cervical vertebral fusion; S/P lumbar fusion; Lumbar stenosis with neurogenic claudication; Cervical disc disorder with myelopathy of cervicothoracic region; Cervical disc disorder with myelopathy of mid-cervical region; Spondylosis with myelopathy; Left arm weakness; Low back pain, non-specific; Subcutaneous mass 11/23/2024 1:25 PM CDT - 11/23/2024 11:59 PM CDT Hospital Encounter [id number] [address] [facility] [address] [place] [address] S/P lumbar fusion; Lumbar stenosis with neurogenic claudication; Low back pain, non-specific Discharge Disposition: Discharge to home or self care 11/23/2024 2:00 PM CDT Office Visit [facility] Neurosurgery [address] [facility] [address] [place] [address] Chris Steward MD Cervical myelopathy (HCC); Cervical vertebral fusion from Last 3 Months Allergies Active Allergy Reactions Criticality Noted Date Comments Atorvastatin Muscle pain Medium 08/24/2015 [place] Pollen Eye irritation Low 04/18/2010 Medications empagliflozin (JARDIANCE) 10 mg tabletIndication s:Heart Failure Take 1 tablet (10 mg total) by mouth every morning 2 Active fluticasone propionate (FLONASE) 50 mcg/actuation nasal sprayIndications :Allergic Conjunctivitis,A llergic Rhinitis Administer 1 spray into each nostril slot service specialist before breakfast Active ipratropium (ATROVENT) 21 [...] 3 tablets (225 mg total) by mouth slot service specialist before breakfast 4 Active tamsulosin (FLOMAX) 0.4 mg extended release capsuleIndicatio ns:benign prostatic hyperplasia with lower urinary tract sx Take 1 capsule (0.4 mg total) by mouth nightly [address] (PROTONIX) 40 mg EC tabletIndication s:Treatment of Non-Bleeding Gastric Disorder Take 1 tablet (40 mg total) by mouth slot service specialist before breakfast 4 09/29/19 31 Active [...] 1 tablet (81 mg total) by mouth slot service specialist before breakfast 4 Active cholecalciferol (VITAMIN [...] 07/16/2024 Assessment & Plan (07/16/2024 9:43 AM SUPERVISOR COUNSELING AND GUIDANCE): update Benign prostatic hyperplasia 07/16/2024 Assessment & Plan (07/16/2024 9:43 AM SUPERVISOR COUNSELING AND GUIDANCE): Continues on dual therapy and continues on tamsulosin and finasteride. DDD (degenerative disc disease), cervical 2023 Assessment & Plan (07/16/2024 9:43 AM SUPERVISOR COUNSELING AND GUIDANCE): Continue f/uw with spine and pain management and will follow response. Coronary artery disease of n ative heart with stable angina pectoris 07/16/2024 Assessment & Plan (07/16/2024 9:43 AM SUPERVISOR COUNSELING AND GUIDANCE): Secondary prevention for CAD and will ronna [...] 2022 Assessment & Plan (07/16/2024 9:42 AM SUPERVISOR COUNSELING AND GUIDANCE): COntinue f/u. Assessment & Plan (08/27/2023 9:15 AM SUPERVISOR COUNSELING AND GUIDANCE): [facility] 6 months ago Follow up endoscopy in October to determine if change in size and plan Groin pain 08/26/2023 Impotence of organic origin 08/26/2023 Nondisplaced fracture of fif th metatarsal bone, right foot, initial encounter for closed fracture 08/26/2023 Assessment & Plan (08/27/2023 9:17 AM SUPERVISOR COUNSELING AND GUIDANCE): [facility]; [facility] shoe Nontraumatic rupture of tendons of biceps (long head) 08/26/2023 Osteoarthritis 08/26/2023 Other retention of urine 08/26/2023 Pain in left foot 08/26/2023 Paresthesia of skin 08/26/2023 Peripheral vascular disease, unspecified 023 Assessment & Plan (07/16/2024 9:42 AM SUPERVISOR COUNSELING AND GUIDANCE): Reivewed claudicatory sypmtoms and secondary prevnetion for [...] 07/05/2021 Assessment & Plan (09/07/2021 6:29 PM SUPERVISOR COUNSELING AND GUIDANCE): significant burden on device interrogation with symptoms [...] 01/06/2020 Assessment & Plan (07/16/2024 9:41 AM SUPERVISOR COUNSELING AND GUIDANCE): Continues on sprionolactone, metoprolol XL 50mg, lisionpril [...] 01/06/20 Assessment & Plan (07/16/2024 9:41 AM SUPERVISOR COUNSELING AND GUIDANCE): COntinues on metoprolol XL and DOAC - [...] (11/10/2019): Added automatically from request for surgery [id number] Assessment & Plan (11/29/2019 9:15 AM CDT): S/p MVR (bio) on 11/16/2019 HR COORDINATOR off 11/27 Unable to start beta sandy as BP soft and down to the mid 80s this morning with return to > 100 without intervention CXR TTE in the morning Creatinine now at baseline - continue to hold lasix. Discharge planning - home when able Assessment & Plan (11/28/2019 1:09 PM CDT): S/p MVR (bio) on 11/16/2019 HR COORDINATOR off 11/27 Unable to start beta sandy [...] PM CDT): S/p MVR (bio) on 11/16/2019 HR COORDINATOR off today EPW out this morning Unable to start beta sandy as BP soft No need for TTE per Dr. Kelley Creatinine now at baseline - still holding lasix. Not on home diuretic and no signs of edema. Cardiomyopathy, ischemic 09/21/2019 Assessment & Plan (07/16/2024 9:42 AM SUPERVISOR COUNSELING AND GUIDANCE): No s/s fo fluid overload. Assessment & Plan (09/07/2021 6:30 PM SUPERVISOR COUNSELING AND GUIDANCE): Appear compensated. 10/2019 TTE EF 45% Continue [...] Chronic, stable, well controlled BP at visit; / Continue Lisinopril 5 mg daily, Metoprolol 200 mg nightly, Spironolactone 25 mg nightly Assessment & Plan (09/07/2021 6:29 PM SUPERVISOR COUNSELING AND GUIDANCE): Continue home meds Atrial fibrillation 09/21/2019 Assessment [...] daily Assessment & Plan (09/07/2021 6:29 PM SUPERVISOR COUNSELING AND GUIDANCE): Continue metop and xarelto Assessment & Plan [...] 08/12/2018 Assessment & Plan (08/12/2018 1:00 PM SUPERVISOR COUNSELING AND GUIDANCE): Acute on Chronic back pain Pt. With hx of back pain. Had Surgery on back about a year ago at [facility]. Was doing fine until about 3 months ago when pain started to come back and it has progressively gotten worse. He went to [facility] and now has a cane and back brace to use. He is planning on starting PT at the [facility] in September Will try Medrol dose pack [...] for interested patients with access to an boilermaker assembly and erection. Spine Inspection-nomal Spine palpation-normal Reflexes-Patellar- Decreased on [...] 01/15/2014 Assessment & Plan (07/16/2024 9:42 AM SUPERVISOR COUNSELING AND GUIDANCE): Reivewed use of venlafaxinea nd will monitor response. Assessment & Plan (02/23/2024 9:37 AM CDT): Chronic, stable Continue Venlafaxine 225 mg daily Assessment & Plan (11/21/2019 2:37 AM CDT): -venlefaxine -ramelteon prn qhs Atherosclerotic heart diseas e of [place] coronary artery without angina pectoris 02/22/2013 Tobacco [...] diet Assessment & Plan (08/12/2018 12:51 PM SUPERVISOR COUNSELING AND GUIDANCE): Obesity is unchanged. Discussed the patient's BMI. [...] greens, fat-free milk, cottage cheese, nuts like [id number]-[id number]-[id number], protein bars with 10-15 g of protein and 20-30 g of carbohydrate. Choose whole grain breads and pastas, brown rice, sweet potatoes, read onions--these whole grains absorb more slowly thus blood sugar does not surge so high so quickly. Avoid drinking juice, eat a piece of fruit instead. Hawkins's esophagus 01/15/2014 11/22/19 20 Overview (12/05/2016): Barretts esophagus Immunizations Immunization Administration Dates Next Due Hep [...] Unspecified 05/31/2009,08/09/2003 Td, Unspecified 05/27/2011 Tdap 04/18/2010 Social History Tobacco Use Types Packs/Day Years Used Date Smoking Tobacco: Former Cigarettes 2 49 1 - 2019 Smokeless Tobacco: Never Tobacco Cessation:Counseling Given: Not Answered Alcohol Use Standard Drinks/Week Comments Yes 0 (1 standard drink = 0.6 oz pur e alcohol) [facility] [employer] Answer Date Recorded In the past 12 months has e Drop Mess[employer], gas, oil, or water [employer] threatened to shut off services in your [...] 02/23/2024 How often do you attend chur ch or anglican services? Never 02/23/2024 Do you belong to any clubs o r organizations such as islam groups, unions, fraternal or athletic groups, or [...] staff should administer the PHQ-9) 0 [facility]2024 [facility]ational [facility] Answer Date Recorded [...] money to buy more. Never true 02/23/20 Within the past 12 months, t he [...] any time in the past 12 m [facility], were you homeless or living in a care home (including now)? No 02/23/2024 Personal Safety Answer Date Recorded Have you ever been in or are you currently in a harmful physical or emotional relationship or is someone making you feel afraid or unsafe? 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 Not on file Not on file Not on fi le Last Filed Vital Signs Vital Sign Reading Time Taken Comments Blood Pressure 98/62 07/14/2024 1:31 PM SUPERVISOR COUNSELING [employer] GUIDANCE Pulse 74 07/14/2024 1:31 PM SUPERVISOR COUNSELING [employer] GUIDANCE Temperature 36.4 C (97.6 F) 07/14/2024 1:31 PM SUPERVISOR COUNSELING [employer] GUIDANCE Respiratory Rate 18 07/14/2024 1:31 PM SUPERVISOR COUNSELING AND GUIDANCE Oxygen Saturation 97% 07/14/2024 1:31 PM SUPERVISOR COUNSELING AND GUIDANCE Inhaled Oxygen Concentration - - Weight 96.2 kg (212 lb) 11/23/2024 1:59 PM CDT Height 180.3 cm (5' 11) 11/23/2024 1:59 PM CDT Body Mass Index 29.57 11/23/2024 1:59 PM CDT Plan of Treatment Not on file Goals Goal Patient Goal Type Associated Problems Recent Progress Patient-Stated? Author CCM Chronic Pain Care Plan Chronic Care Management No change(12/29 7:30 AM CDT) No Raisa Gipson, RN Note: Problem: Chronic Pain Goals: 1. Minimize further functional decline 2. Maximize quality of life 3. Control pain Strategies: - Activity/exercise program recommendation - Conservative stepwise pain medicine strategy with multi-disciplinary approach - Recommend healthy lifestyle strategies and compensatory methods as needed Medical Devices Implanted Type Area Channel Process Plant Operator Device Identifier Shelf Expiration Date Model / Serial / Lot Medtronic Icd [id number]/31/20 18 Implanted:05/01 (Quantity not on file) ICD Left: Chest Medtronic Cardiac Rhythm Mgmt [id number] / [id number] / Medtronic Ra Lead 5076-52-05/28/20 10 Implanted:05/28 (Quantity not on file) Lead Heart Medtronic Cardiac Rhythm Mgmt 5076-52 / [id number] / Medtronic Rv Lead 6935-65-05/28/20 10 Implanted:05/28 (Quantity not on file) Lead Heart Medtronic Cardiac Rhythm Mgmt 6935-65 / [id number] / Medtronic Lv Lead 4296-88-02/09/20 13 Implanted:02/08 (Quantity not on file) Lead Heart Medtronic Cardiac Rhythm Mgmt 4296-88 / [id number] / [employer] [id number] System 6-12fr Mvp Venous Closure Vascade - [id number] Implanted:Qty: 1 on 09/07/2021 by Leo Brito MD at [facility] Other - see comments Right: Groin [employer] 06/14/2023 800-612C-1 0U / / [id number] [employer] [id number] System 6-12fr Mvp Venous Closure Vascade - [id number] Implanted:Qty: 1 on 09/07/2021 by Leo Brito MD at [facility] Other - see comments Right: Groin [employer] 06/14/2023 800-612C-1 0U / / [employer] [id number] System 6-12fr Mvp Venous Closure Vascade - [id number] Implanted:Qty: 1 on 09/07/2021 by Leo Brito MD at [facility] Other - see comments Left: Groin [employer] 06/14/2023 800-612C-1 0U / / [id number] [employer] [id number] Jose-Edwa rds Perimount Magna 33mm Bioprosthesis Ease Heart - [id number] - [id number] Implanted:Qty: 1 on 11/16/2019 by Monserrat Kelley MD at [facility] Prosthetic Valve N/A: Heart [employer] 09/20/2023 [id number] / [id number] / Cardiac Stents Implanted:Qty: 3 Heart Description:States there are 3 stents total. Last one done in 2016 at the [facility] Depuy Synthes Spine 3.5mm 40mm Lordosis Tj Spinal Titanium [id number] - [id number] Implanted:Qty: 1 on 05/23/2023 by Chris Steward MD at [facility] N/A: Spine Cervical Depuy Synthes Spine [id number] / / Depuy Synthes Spine Graft Bone Filler Sm Inj Fibergraft Bg Gps 4cc Putty [id number] - [id number] Implanted:Qty: 1 on 05/23/2023 by Chris Steward MD at [facility] N/A: Spine Cervical Depuy Synthes Spine 08/28/2024 [id number] / / [id number] Depuy Synthes Spine Screw Spinal Set Posterior Cervical Solid Symphony Titanium [id number] - [id number] Implanted:Qty: 6 on 05/23/2023 by Chris Steward MD at [facility] N/A: Spine Cervical Depuy Synthes Spine [id number] / / Depuy Synthes Spine Screw Spinal Posterior Cervical Polyaxial Solid Symphony 3.5x14mm [id number] - [id number] Implanted:Qty: 3 on 05/23/2023 by Chris Steward MD at [facility] N/A: Spine Cervical Depuy Synthes Spine [id number] / / Depuy Synthes Spine Screw Spinal Posterior Cervical Polyaxial Solid Symphony 3.5x16mm [id number] - [id number] Implanted:Qty: 2 on 05/23/2023 by Chris Steward MD at [facility] N/A: Spine Cervical Depuy Synthes Spine [id number] / / Depuy Synthes Spine 3.5mm 35mm Lordosis Tj Spinal Titanium [id number] - [id number] Implanted:Qty: 1 on 05/23/2023 by Chris Steward MD at [facility] N/A: Spine Cervical Depuy Synthes Spine [id number] / / Depuy Synthes Spine Screw Spinal Posterior Cervical Polyaxial Solid Symphony 3.5x12mm [id number] - [id number] Implanted:Qty: 1 on 05/23/2023 by Chris Steward MD at [facility] N/A: Spine Cervical Depuy Synthes Spine [id number] / / [employer]ource Canpac Nonpurge Frozen Graft 25cc Bone [id number] - [id number] - [id number] Implanted:Qty: 1 on 03/12/2024 by Chris Steward MD at [facility] Spine Lumbar [employer] 01/22/2029 [id number] / [id number] / [employer] Graft Bone Magnetos 10cc 1-2mm Granules In Moldable Putty 703-038-Us - [id number] Implanted:Qty: 1 on 03/12/2024 by Chris Steward MD at [facility] Spine Lumbar [employer] [id number] / / [employer] 1134.001 Creo Spinal Cap Locking Nonsterile Mis - [id number] Implanted:Qty: 4 on 03/12/2024 by Chris Steward MD at [facility] N/A: Spine Lumbar [employer] 1134.0010 / / [employer] 1134.01 Creo Mis 30mm Modular Polyaxial [place] Head Screw Bone - [id number] Implanted:Qty: 4 on 03/12/2024 by Chris Steward MD at [facility] N/A: Spine Lumbar [employer] 1134.0100 / / [employer] Creo Amp 6.5mm 45mm Cannulated Modular Spine Screw Bone 1067.4645 - [id number] Implanted:Qty: 1 on 03/12/2024 by Chris Steward MD at [facility] N/A: Spine Lumbar [employer] 1067.4645 / / [employer] Creo Amp 6.5mm 55mm Cannulated Modular Spine Screw Bone 1067.4655 - [id number] Implanted:Qty: 1 on 03/12/2024 by Chris Steward MD at [facility] N/A: Spine Lumbar [employer] 1067.4655 / / [employer] Creo Amp 7.5mm 55mm Cannulated Modular Spine Screw Bone 1067.4755 - [id number] Implanted:Qty: 2 on 03/12/2024 by Chris Steward MD at [facility] N/A: Spine Lumbar [employer] 1067.4755 / / [employer] Altera [id number] 15d Spacer Spinal 1124.1233 - [id number] Implanted:Qty: 1 on 03/12/2024 by Chris Steward MD at [facility] N/A: Spine Lumbar [employer] 1124.1233 / / [employer] [id number] Creo Mis 5.5mm 50mm Curve Tj Spinal Titanium - [id number] Implanted:Qty: 2 on 03/12/2024 by Chris Steward MD at [facility] N/A: Spine Lumbar [employer] 1134.7050 / / Procedures Procedure Name [...] Read Routine (OP Routine) 10/19/2019 10:57 AM SUPERVISOR COUNSELING AND GUIDANCE Severe mitral regurgitation from Last 3 Months [...] disease Electronically signed by: Lucio Montoya MD us Chris Steward MD IMG XR PROCEDURES Final Re [...] data last revised 22. Testing performed by: [facility], [address] [place] [address], [place]., [address] Blood 02/19/2024 4:13 PM CDT 02/19/2024 7:43 PM CDT Katia Rodriguez NP LAB BLOOD ORDERABLES Final Resul t [facility] [address] [facility] [place] [address] * Hepatitis C antibody Blood (02/19/2024 4:13 [...] last revised on 2019. Testing performed by: [facility], [address] [place] [address], [place]., [address] Blood 02/19/2024 4:13 PM CDT 02/19/2024 7:43 PM CDT us Katia Rodriguez NP LAB MICROBIOLOGY - GENERAL ORDER ESEQUIEL Final Result [facility]) [facility] Department [place] [address] * CTA Chest Abdomen Pelvis (10/19/2019 10:57 AM SUPERVISOR COUNSELING AND GUIDANCE) Anatomical Region Laterality Modality Body N/A Computed Tomogra phy 10/19/2019 2:48 PM SUPERVISOR COUNSELING AND GUIDANCE Impressions 10/19/2019 4:11 PM SUPERVISOR COUNSELING AND GUIDANCE 1. Reconstructions of the substernal vascular anatomy [...] Doyle Solis M.D. Narrative 10/19/2019 4:11 PM SUPERVISOR COUNSELING AND GUIDANCE EXAMINATION: Computed tomography angiography of the chest, [...] artery. The left atrium is mildly enlarged. [place] coronary arteries are atherosclerotic. There is multilevel [...] artery. The left atrium is mildly enlarged. [place] coronary arteries are atherosclerotic. There is multilevel [...] by: Doyle Solis M.D. Monserrat Kelley MD IMG CT PROCEDURES Final Result from Last 3 Months or Most Recently Relevant to Health Maintenance Additional Health Concerns Infection Onset Date Last Indicated MDR gram neg/ESBL 11/21/2019 11/21/2019 Insurance MEDICARE [facility] HEALTH BENEFIT PLAN [place], [place] [facility] CHOICE [facility] [place] [address] [facility] [place] [address] HEALTH BENEFIT PLAN Advance Directives For more information, please contact: [phone] * Full Code (Latest Code Status on [...] 4:46 PM 09/07/2021 4:46 PM Care Teams Acute Specialist Relationship Specialty Start Date End Date Bayron Hurt MD [address] [place] [address] PCP - General Family Medicine 04/20/24 [facility], Cristino Sweet [address] [place] [address] Referring Physician Cardiology 09/10/19 Monserrat Kelley MD [address] [place] [address] Surgeon Cardiothoracic Surgery 11/29/19 Miscellaneous, Not In File 11/29/19 Junior Zaldivar, PT Physical Therapist Physical Therapy 04/10/23 Mary Lou Carrasco, OT Occupational Therapist Occupational Therapy 09/08/23 Leo Cheema MD [address] [place] [address] Consulting Physician Family Medicine 03/17/24
== END 2025-02-14 10:20 | disposition home or self-care (01) ==
PROVIDERS: Emergency Provider Nurse Practitioner Family
DX: L03.116 Cellulitis of left lower limb (principal); I48.91 Unspecified atrial fibrillation; I50.9 Heart failure, unspecified; Z95.1 Presence of aortocoronary bypass graft
CPT/HCPCS: 73630; 99203; G0463